=== PATIENT | female | born 1975 | race African-American/Black ===

== ENCOUNTER 2016-08-11 13:39 | Emergency (ER) | payer MEDICAID ==
[2016-08-11 13:58] VITALS: BP 152/86
--- NOTE | 2016-08-11 14:02 | EDM.PDOC ---
ED HPI GENERAL MEDICAL PROBLEM - General Chief Complaint: General Stated Complaint: BODY PAINS Time Seen by Provider: 08/11/16 14:02 Source of Information: Reports: Patient - History of Present Illness INITIAL COMMENTS - FREE TEXT/NARRATIVE: This 41-year-old female that is here today for evaluation for overall "pain everywhere". 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 She denies any other medical history. She reports the pain is mostly in her feet and sometimes it "all over" she denies any chest pain or dyspnea. No headaches or dizziness. She reports occasional left-sided lower abdominal pain but feels she doesn't really have this today. Denies any dysuria or hematuria. 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 Patient reports very poor diet and she does not exercise daily. She does drink soda "all day long". She does smoke marijuana daily denies any other drug use. She is not on any daily medications. Patient reports that she moved out here approximately one year ago from [place] with her 9 children to make a better life for them. She is not or in a relationship. Her sister does live here in [place] and she feels she has a good support network with her. Patient reports that [facility], she denies ever being on medication for this. She denies any previous or current thoughts of suicide. Treatments NATIONAL ACCOUNTS RECRUITER: Reports: Other (see below) Other Treatments NATIONAL ACCOUNTS RECRUITER: 2 tylenol today Generalized Pain Score (Numeric/FACES): 10 - Related Data Allergies Allergy/AdvReac Type Severity Reaction Status Date / Time No Known Allergies Allergy Verified 08/11/16 13:52 Home Meds: Home Meds Escitalopram Oxalate [Lexapro] 5 mg PO DAILY #30 tablet 08/11/16 [Rx] Past Medical History Musculoskeletal History: Reports: Arthritis, Other (See Below) Other Musculoskeletal History: torn ligaments to the left knee Psychiatric History: Reports: Depression Dermatologic History: Reports: Other (See Below) Other Dermatologic History: psorisis Social & Family History - Tobacco Use Smoking Status *Q: Current Every Day Smoker Years of Tobacco use: 20 Packs/Tins Daily: 0.5 - Caffeine Use Caffeine Use: Reports: Soda - Recreational Drug Use Recreational Drug Type: Reports: Marijuana/Hashish Recreational Drug Use Frequency: Daily ED ROS GENERAL - Review of Systems Review Of Systems: See Below Constitutional: Reports: Weakness, Fatigue, Decreased Appetite. Denies: Fever, Chills, Malaise, Weight Loss HEENT: Reports: No Symptoms Respiratory: Reports: No Symptoms Cardiovascular: Reports: No Symptoms Endocrine: Reports: Fatigue. Denies: Polydypsia, Polyuria GI/Abdominal: Reports: Abdominal Pain (LLQ), Black Stool, Decreased Appetite, Other (Hemorrhoids). Denies: Anorexia, Bloody Stool, Constipation, Diarrhea Musculoskeletal: Reports: Other (Diffuse arthralgias and myalgias. ) Skin: Reports: Rash (Patient has psoriasis) Neurological: Reports: No Symptoms Psychiatric: Reports: Anxiety, Depression. Denies: Hallucinations, Homicidal Ideation, Suicidal Ideation ED EXAM, GENERAL - Physical Exam Exam: See Below Exam Limited By: No Limitations General Appearance: Alert, WD/WN, Anxious, Mild Distress Eye Exam: Right Eye: Normal Inspection, PERRL Ears: Normal External Exam, Normal Canal, Hearing Grossly Normal, Normal TMs Nose: Normal Inspection Throat/Mouth: Normal Inspection, Normal Oropharynx Head: Atraumatic, Normocephalic Respiratory/Chest: No Respiratory Distress, Lungs Clear, Normal Breath Sounds Cardiovascular: Regular Rate, Rhythm, No Edema, No Murmur, No Rub GI/Abdominal: Normal Bowel Sounds, Soft, Tender (Mild LLQ tenderness). No: Guarding, Mass Extremities: Normal Inspection, Normal Range of Motion Neurological: Alert, Oriented, Normal Cognition, No Motor/Sensory Deficits Psychiatric: Anxious, Tearful (Patient tearful when discussing her emotional and financial stress. ) Skin Exam: Warm, Rash (Scaly rash to bilateral shins) Lymphatic: No Adenopathy Course - Vital Signs Last Recorded V/S: Last Vital Signs Temp 97.7 F 08/11/16 13:57 Pulse 70 08/11/16 13:57 Resp 20 08/11/16 13:57 BP 152/86 H 08/11/16 13:57 Pulse Ox 100 08/11/16 13:57 - Orders/Labs/Meds Orders: Active Orders 24 hr Category Date Time Status EKG 12 Lead [EKG Documentation Completion] [RC] STAT Care 08/11/16 14:25 Active Abdomen 2V AP Flat Upright [CR] Stat Exams 08/11/16 15:29 Taken CULTURE URINE [RM] Stat Lab 08/11/16 17:28 Ordered Labs: Laboratory Tests 08/11/16 08/11/16 08/11/16 Range/Units 14:42 14:42 14:42 WBC 4.38 (3.98-10.04) K/mm3 RBC 4.47 (3.98-5.22) M/mm3 Hgb 11.0 L (11.2-15.7) gm/L Hct 35.1 (34.1-44.9) % MCV 78.5 L (79.4-94.8) fl MCH 24.6 L (25.6-32.2) pg MCHC 31.3 L (32.2-35.5) g/dl RDW Std Deviation 49.1 H (36.4-46.3) fL Plt Count 121 L (182-369) K/mm3 MPV 11.4 (9.4-12.3) fl Neutrophils % (Manual) 43 (40-60) % Band Neutrophils % 0 (0-10) % Lymphocytes % (Manual) 47 H (20-40) % Atypical Lymphs % 0 % Monocytes % (Manual) 9 (2-10) % Eosinophils % (Manual) 0 L (0.7-5.8) % Basophils % (Manual) 1 (0.1-1.2) Platelet Estimate Decreased Plt Morphology Comment See note Hypochromasia 1+ slight Poikilocytosis 1+ slight Anisocytosis 1+ slight Microcytosis 1+ slight Ovalocytes 1+ slight RBC Morph Comment Not Reportable ESR 36 H (0-20) mm/hr Sodium 144 (136-145) mEq/L Potassium 3.4 L (3.5-5.1) mEq/L Chloride 110 H (98-107) mEq/L Carbon Dioxide 28 (21-32) mEq/L Anion Gap 9.4 (5-15) BUN 8 (7-18) mg/dL Creatinine 0.8 (0.55-1.02) mg/dL Est Cr Clr Drug Dosing 69.83 mL/min Estimated GFR (MDRD) > 60 (>60) mL/min BUN/Creatinine Ratio 10.0 L (14-18) Glucose 107 H (74-106) mg/dL Calcium 8.4 L (8.5-10.1) mg/dL Total Bilirubin 0.2 (0.2-1.0) mg/dL AST 16 (15-37) U/L ALT 14 (14-59) U/L Alkaline Phosphatase 111 (46-116) U/L C-Reactive Protein 0.8 (<1.0) mg/dL Total Protein 7.3 (6.4-8.2) g/dl Albumin 3.2 L (3.4-5.0) g/dl Globulin 4.1 gm/dL Albumin/Globulin Ratio 0.8 L (1-2) TSH 3rd Generation 0.496 (0.358-3.74) uIU/mL Urine Color (Yellow) Urine Appearance (Clear) Urine pH (5.0-8.0) Ur Specific [place] (1.005-1.030) Urine Protein (Negative) Urine Glucose (UA) (Negative) Urine Ketones (Negative) Urine Occult Blood (Negative) Urine Nitrite (Negative) Urine Bilirubin (Negative) Urine Urobilinogen (0.2-1.0) Ur Leukocyte Esterase (Negative) Urine RBC (0-5) /hpf Urine WBC (0-5) /hpf Ur Epithelial Cells Ur Squamous Epith Cells (0-5) /hpf Urine Bacteria (FEW) /hpf Urine Mucus (FEW) /hpf Urine HCG, Qual (NEGATIVE) 08/11/16 08/11/16 Range/Units 16:00 16:00 WBC (3.98-10.04) K/mm3 RBC (3.98-5.22) M/mm3 Hgb (11.2-15.7) gm/L Hct (34.1-44.9) % MCV (79.4-94.8) fl MCH (25.6-32.2) pg MCHC (32.2-35.5) g/dl RDW Std Deviation (36.4-46.3) fL Plt Count (182-369) K/mm3 MPV (9.4-12.3) fl Neutrophils % (Manual) (40-60) % Band Neutrophils % (0-10) % Lymphocytes % (Manual) (20-40) % Atypical Lymphs % % Monocytes % (Manual) (2-10) % Eosinophils % (Manual) (0.7-5.8) % Basophils % (Manual) (0.1-1.2) Platelet Estimate Plt Morphology Comment Hypochromasia Poikilocytosis Anisocytosis Microcytosis Ovalocytes RBC Morph Comment ESR (0-20) mm/hr Sodium (136-145) mEq/L Potassium (3.5-5.1) mEq/L Chloride (98-107) mEq/L Carbon Dioxide (21-32) mEq/L Anion Gap (5-15) BUN (7-18) mg/dL Creatinine (0.55-1.02) mg/dL Est Cr Clr Drug Dosing mL/min Estimated GFR (MDRD) (>60) mL/min BUN/Creatinine Ratio (14-18) Glucose (74-106) mg/dL Calcium (8.5-10.1) mg/dL Total Bilirubin (0.2-1.0) mg/dL AST (15-37) U/L ALT (14-59) U/L Alkaline Phosphatase (46-116) U/L C-Reactive Protein (<1.0) mg/dL Total Protein (6.4-8.2) g/dl Albumin (3.4-5.0) g/dl Globulin gm/dL Albumin/Globulin Ratio (1-2) TSH 3rd Generation (0.358-3.74) uIU/mL Urine Color Yellow (Yellow) Urine Appearance Slt cloudy H (Clear) Urine pH 7.0 (5.0-8.0) Ur Specific [place] 1.020 (1.005-1.030) Urine Protein 1+ H (Negative) Urine Glucose (UA) Negative (Negative) Urine Ketones Negative (Negative) Urine Occult Blood Negative (Negative) Urine Nitrite Positive H (Negative) Urine Bilirubin Negative (Negative) Urine Urobilinogen 1.0 (0.2-1.0) Ur Leukocyte Esterase Trace H (Negative) Urine RBC 0-5 (0-5) /hpf Urine WBC 5-10 H (0-5) /hpf Ur Epithelial Cells Not Reportable Ur Squamous Epith Cells 5-10 H (0-5) /hpf Urine Bacteria Many H (FEW) /hpf Urine Mucus Few (FEW) /hpf Urine HCG, Qual Negative (NEGATIVE) - Re-Assessments/Exams Free Text/Narrative Re-Assessment/Exam: Exam is unremarkable for cause for her diffuse generalized pain. EKG demonstrates normal sinus rhythm. With a rate of 62. WBC 4380, hemoglobin mildly decreased at 11. TSH 0.496. UA demonstrates some nitrites and trace leukocyte esterase, we'll send this for culture and if abnormal will treat with antibiotics at that time. X-ray of her abdomen was unremarkable, official report is pending. I do feel that patient's untreated depression is contributing to her overall feeling of unwellness. Patient desires treatment for this, will start 5 mg Lexapro daily risks and benefits and side effects were discussed at length and patient verbalized understanding. She will followup with her PCP within the next 1-2 weeks for reassessment of this. 08/11/16 17:31 08/11/16 17:33 Departure - Departure Time of Disposition: 17:26 Disposition: Home, Self-Care 01 Condition: good (chronic pain) Clinical Impression: Generalized pain, Depression - Discharge Information Prescriptions: Escitalopram Oxalate [Lexapro] 5 mg PO DAILY #30 tablet Referrals: Maddy Austin, 3D ARTIST [Primary Care Provider] - Forms: ED Department Discharge Additional Instructions: You need to focus on a healthy diet and increasing her oral fluids and decreasing soda intake. Will start the Lexapro daily for your depression and you need to followup with Yandy Austin within the next week or 2. You may certainly return to the ER if needed. Consider counseling as well. - My Orders Last 24 Hours: My Active Orders 08/11/16 14:25 EKG 12 Lead [EKG Documentation Completion] [RC] STAT 08/11/16 15:29 Abdomen 2V AP Flat Upright [CR] Stat 08/11/16 17:28 CULTURE URINE [RM] Stat - Assessment/Plan Last 24 Hours: My Active Orders 08/11/16 14:25 EKG 12 Lead [EKG Documentation Completion] [RC] STAT 08/11/16 15:29 Abdomen 2V AP Flat Upright [CR] Stat 08/11/16 17:28 CULTURE URINE [RM] Stat
--- NOTE | 2016-08-15 09:38 | CR ---
Abdomen: Supine and upright views of the abdomen were obtained. Comparison: No previous study. Bowel gas pattern is normal. No free air is seen. No abnormal calcifications are identified. Mild joint space narrowing is seen superiorly within the left hip. Impression: 1. Mild joint space narrowing within the left hip. 2. Two-view abdominal x-ray is otherwise unremarkable. Diagnostic code #2
== END 2016-08-11 17:43 | disposition home or self-care (01) ==
LOC: JD.ED 13:39 → EDBD 13:39 → JD.ED 17:43
DX: R10.84 Generalized abdominal pain (principal); R10.814 Left lower quadrant abdominal tenderness; F32.9 Major depressive disorder, single episode, unspecified; F17.210 Nicotine dependence, cigarettes, uncomplicated; L40.9 Psoriasis, unspecified; M19.90 Unspecified osteoarthritis, unspecified site; Z79.899 Other long term (current) drug therapy
CPT/HCPCS: 36415; 74020; 74020-26; 80053; 81001; 81025; 84443; 85025; 85652; 86140; 87086; 87088; 87186; 93005; 99283; 99284-25

== ENCOUNTER 2017-05-11 16:48 | Emergency (ER) | payer MEDICAID ==
[2017-05-11 16:56] VITALS: BP 185/96
[2017-05-11] MEDS ORDERED: Sodium Chloride 0.9% 10 ML Syringe FLUSH PRN (17:14)
[2017-05-11] MEDS ORDERED: Acetaminophen 325 MG Tab PO ONE (17:14)
[2017-05-11] MEDS ORDERED: Ketorolac 30 MG/ML SDV IVPUSH SCH (17:15)
--- NOTE | 2017-05-11 17:24 | EDM.PDOC ---
ED HPI GENERAL MEDICAL PROBLEM - General Chief Complaint: Chest Pain Stated Complaint: CHEST PAINS Time Seen by Provider: 05/11/17 16:59 Source of Information: Reports: Patient History Limitations: Reports: No Limitations - History of Present Illness INITIAL COMMENTS - FREE TEXT/NARRATIVE: 41 year old female comes in with R sided chest pain R lower anterior and R lower lateral chest wall that has been present for about 3 days, worse today. The pain is worse with motion, worse with deep breathing. No cough, fever, chills. No abd pain, nausea, vomiting. No fall or known injury. She does smoke. No hx diabetes, Htn or known heart disease. Treatments COMPENSATION ADMINISTRATOR: Reports: Other (see below) Other Treatments COMPENSATION ADMINISTRATOR: none Right Chest Pain Score (Numeric/FACES): 9 - Related Data Allergies Allergy/AdvReac Type Severity Reaction Status Date / Time No Known Allergies Allergy Verified 08/11/16 13:52 Home Meds: Home Meds Acetaminophen/HYDROcodone [Ames 325-5 MG] 1 tab PO Q6H PRN #14 tablet 05/11/17 [Rx] Naproxen [Naprosyn] 500 mg PO Q12HR #14 tab 05/11/17 [Rx] Past Medical History Musculoskeletal History: Reports: Arthritis, Other (See Below) Other Musculoskeletal History: torn ligaments to the left knee Psychiatric History: Reports: Depression Dermatologic History: Reports: Other (See Below) Other Dermatologic History: psorisis - Past Surgical History Female Surgical History: Reports: Section Other Female Surgeries/Procedures: 8 vaginal deliveries Musculoskeletal Surgical History: Reports: Other (See Below) Social & Family History - Tobacco Use Smoking Status *Q: Current Every Day Smoker Years of Tobacco use: 18 Packs/Tins Daily: 1 - Caffeine Use Caffeine Use: Reports: Soda - Recreational Drug Use Recreational Drug Type: Reports: Marijuana/Hashish Other Recreational Drug Type: daily Recreational Drug Use Frequency: Daily ED ROS GENERAL - Review of Systems Review Of Systems: See Below Constitutional: Denies: Fever, Chills, Diaphoresis HEENT: Denies: Sinus Problem, Throat Pain Respiratory: Reports: Pleuritic Chest Pain. Denies: Shortness of Breath, Cough Cardiovascular: Reports: Chest Pain GI/Abdominal: Denies: Abdominal Pain, Nausea, Vomiting Musculoskeletal: Denies: Neck Pain, Shoulder Pain, Arm Pain, Back Pain Skin: Reports: No Symptoms. Denies: Rash Neurological: Reports: No Symptoms ED EXAM, GENERAL - Physical Exam Exam: See Below General Appearance: Alert, Moderate Distress Eye Exam: Bilateral Eye: PERRL Throat/Mouth: Normal Inspection, Normal Oropharynx Head: Atraumatic. No: Facial Swelling Neck: Supple, Full Range of Motion Respiratory/Chest: No Respiratory Distress, Lungs Clear, Normal Breath Sounds, Other (tender R lower lateral and anterior R chest). No: Rhonchi, Wheezing Cardiovascular: Regular Rate, Rhythm GI/Abdominal: Soft, Non-Tender. No: Guarding Back Exam: No: CVA Tenderness (L), CVA Tenderness (R) Extremities: Normal Inspection. No: Pedal Edema, Leg Pain Neurological: Alert, Oriented, No Motor/Sensory Deficits Skin Exam: Warm, Dry, Normal Color. No: Rash EKG INTERPRETATION EKG Date: 05/11/17 Rhythm: NSR [place]: Normal P-Wave: Present QRS: Normal ST-T: Normal QT: Normal Course - Vital Signs Last Recorded V/S: Last Vital Signs Temp 98.7 F 05/11/17 16:52 Pulse 77 05/11/17 16:52 Resp 14 05/11/17 16:52 BP 185/96 H 05/11/17 16:52 Pulse Ox - Orders/Labs/Meds Orders: Active Orders 24 hr Category Date Time Status EKG 12 Lead [EKG Documentation Completion] [RC] STAT Care 05/11/17 17:14 Active Peripheral IV Care [RC] . DIRECTED Care 05/11/17 17:15 Active Chest 1V Frontal [CR] Stat Exams 05/11/17 17:14 Taken Ketorolac [Toradol] Med 05/11/17 17:15 Active 30 mg IVPUSH ONETIME Sodium Chloride 0.9% [Saline Flush] Med 05/11/17 17:14 Active 10 ml FLUSH ASDIRECTED PRN Peripheral IV Insertion Adult [OM.PC] Stat Oth 05/11/17 17:14 Ordered Medication Orders Ketorolac Tromethamine (Toradol) 30 mg IVPUSH ONETIME [facility] Last Admin: 05/11/17 17:26 Dose: 30 mg Sodium Chloride (Saline Flush) 10 ml FLUSH ASDIRECTED PRN PRN Reason: Keep Vein Open Last Admin: 05/11/17 17:27 Dose: 10 ml Labs: Laboratory Tests 05/11/17 05/11/17 05/11/17 Range/Units 17:40 17:55 17:55 WBC 7.16 (3.98-10.04) K/mm3 RBC 4.84 (3.98-5.22) M/mm3 Hgb 11.9 (11.2-15.7) gm/L Hct 37.6 (34.1-44.9) % MCV 77.7 L (79.4-94.8) fl MCH 24.6 L (25.6-32.2) pg MCHC 31.6 L (32.2-35.5) g/dl RDW Std Deviation 46.0 (36.4-46.3) fL Plt Count 127 L (182-369) K/mm3 MPV 12.4 H (9.4-12.3) fl Neut % (Auto) 64.3 (34.0-71.1) % Lymph % (Auto) 25.3 (19.3-51.7) % [place] % (Auto) 9.4 (4.7-12.5) % Eos % (Auto) 0.6 L (0.7-5.8) Baso % (Auto) 0.1 (0.1-1.2) % Neut # (Auto) 4.61 (1.56-6.13) K/mm3 Lymph # (Auto) 1.81 (1.18-3.74) K/mm3 [place] # (Auto) 0.67 H (0.24-0.36) K/mm3 Eos # (Auto) 0.04 (0.04-0.36) K/mm3 Baso # (Auto) 0.01 (0.01-0.08) K/mm3 Manual Slide Review Abnormal smear D-Dimer, Quantitative 0.43 (0.19-0.59) mg/L Sodium (136-145) mEq/L Potassium (3.5-5.1) mEq/L Chloride (98-107) mEq/L Carbon Dioxide (21-32) mEq/L Anion Gap (5-15) BUN (7-18) mg/dL Creatinine (0.55-1.02) mg/dL Est Cr Clr Drug Dosing mL/min Estimated GFR (MDRD) (>60) mL/min BUN/Creatinine Ratio (14-18) Glucose (74-106) mg/dL Calcium (8.5-10.1) mg/dL Total Bilirubin (0.2-1.0) mg/dL AST (15-37) U/L ALT (14-59) U/L Alkaline Phosphatase (46-116) U/L Troponin I (0.00-0.056) ng/mL Total Protein (6.4-8.2) g/dl Albumin (3.4-5.0) g/dl Globulin gm/dL Albumin/Globulin Ratio (1-2) Urine HCG, Qual Negative (NEGATIVE) 05/11/17 Range/Units 17:55 WBC (3.98-10.04) K/mm3 RBC (3.98-5.22) M/mm3 Hgb (11.2-15.7) gm/L Hct (34.1-44.9) % MCV (79.4-94.8) fl MCH (25.6-32.2) pg MCHC (32.2-35.5) g/dl RDW Std Deviation (36.4-46.3) fL Plt Count (182-369) K/mm3 MPV (9.4-12.3) fl Neut % (Auto) (34.0-71.1) % Lymph % (Auto) (19.3-51.7) % [place] % (Auto) (4.7-12.5) % Eos % (Auto) (0.7-5.8) Baso % (Auto) (0.1-1.2) % Neut # (Auto) (1.56-6.13) K/mm3 Lymph # (Auto) (1.18-3.74) K/mm3 [place] # (Auto) (0.24-0.36) K/mm3 Eos # (Auto) (0.04-0.36) K/mm3 Baso # (Auto) (0.01-0.08) K/mm3 Manual Slide Review D-Dimer, Quantitative (0.19-0.59) mg/L Sodium 138 (136-145) mEq/L Potassium 4.5 (3.5-5.1) mEq/L Chloride 103 (98-107) mEq/L Carbon Dioxide 25 (21-32) mEq/L Anion Gap 14.5 (5-15) BUN 9 (7-18) mg/dL Creatinine 0.7 (0.55-1.02) mg/dL Est Cr Clr Drug Dosing 79.81 mL/min Estimated GFR (MDRD) > 60 (>60) mL/min BUN/Creatinine Ratio 12.9 L (14-18) Glucose 87 (74-106) mg/dL Calcium 8.9 (8.5-10.1) mg/dL Total Bilirubin 0.3 (0.2-1.0) mg/dL AST 28 (15-37) U/L ALT 16 (14-59) U/L Alkaline Phosphatase 138 H (46-116) U/L Troponin I < 0.017 (0.00-0.056) ng/mL Total Protein 8.8 H (6.4-8.2) g/dl Albumin 3.7 (3.4-5.0) g/dl Globulin 5.1 gm/dL Albumin/Globulin Ratio 0.7 L (1-2) Urine HCG, Qual (NEGATIVE) Meds: Medications Generic Name Dose Route Start Last Admin Trade Name Freq PRN Reason Stop Dose Admin Ketorolac Tromethamine 30 mg 05/11/17 17:15 05/11/17 17:26 Toradol IVPUSH 30 mg ONETIME LISA Administration Sodium Chloride 10 ml 05/11/17 17:14 05/11/17 17:27 Saline Flush FLUSH 10 ml ASDIRECTED PRN Administration Keep Vein Open Discontinued Medications Generic Name Dose Route Start Last Admin Trade Name Freq PRN Reason Stop Dose Admin Acetaminophen 975 mg 05/11/17 17:14 05/11/17 17:25 Tylenol PO 05/11/17 17:15 975 mg NOW ONE Administration Hydrocodone Bitart/Acetaminophen 1 tab 05/11/17 19:11 05/11/17 19:21 [place] 325-5 Mg PO 05/11/17 19:12 1 tab ONETIME ONE Administration - Re-Assessments/Exams Free Text/Narrative Re-Assessment/Exam: 05/11/17 19:30 troponin, CXR, other labs normal, discharge instr. as documented. Departure - Departure Time of Disposition: 19:11 Disposition: Home, Self-Care 01 Condition: Fair Clinical Impression: Chest wall pain Prescriptions: Naproxen [Naprosyn] 500 mg PO Q12HR #14 tab Acetaminophen/HYDROcodone [Ames 325-5 MG] 1 tab PO Q6H PRN #14 tablet PRN Reason: Pain Instructions: Chest Wall Pain, [id number] Referrals: PCP,None [Primary Care Provider] - Forms: ED Department Discharge Additional Instructions: naprosyn 500 mg twice daily, you may take hydrocodone in addition 1 tablet q 6 to 8 hr if needed for severe pain not relieved by naprosyn. Follow up clinic if not much better within 3 to 4 days as expected. Return to ED as needed if symptoms worsening in any way. - My Orders Last 24 Hours: My Active Orders 05/11/17 17:14 EKG 12 Lead [EKG Documentation Completion] [RC] STAT Chest 1V Frontal [CR] Stat Sodium Chloride 0.9% [Saline Flush] 10 ml FLUSH ASDIRECTED PRN Peripheral IV Insertion Adult [OM.PC] Stat 05/11/17 17:15 Peripheral IV Care [RC] . DIRECTED Ketorolac [Toradol] 30 mg IVPUSH ONETIME - Assessment/Plan Last 24 Hours: My Active Orders 05/11/17 17:14 EKG 12 Lead [EKG Documentation Completion] [RC] STAT Chest 1V Frontal [CR] Stat Sodium Chloride 0.9% [Saline Flush] 10 ml FLUSH ASDIRECTED PRN Peripheral IV Insertion Adult [OM.PC] Stat 05/11/17 17:15 Peripheral IV Care [RC] . DIRECTED Ketorolac [Toradol] 30 mg IVPUSH ONETIME
[2017-05-11] MEDS ORDERED: Acetaminophen/HYDROcodone 325-5 MG Tab PO ONE (19:11)
--- NOTE | 2017-05-12 15:53 | CR ---
Chest: Portable view of the chest was obtained. Comparison: No prior chest x-ray is available. Heart is enlarged. Upper mediastinum is normal. Lungs are clear. Bony structures are grossly intact. Impression: 1. Cardiomegaly. Given the patient's age echocardiogram could be considered to further evaluate if the etiology is not known. 2. Nothing acute is otherwise seen on portable chest x-ray. Diagnostic code #3
== END 2017-05-11 19:32 | disposition home or self-care (01) ==
LOC: JD.ED 16:48
DX: R07.89 Other chest pain (principal); F17.210 Nicotine dependence, cigarettes, uncomplicated; F32.9 Major depressive disorder, single episode, unspecified
CPT/HCPCS: 36415; 71045; 80053; 81025; 84484; 85025; 85379; 93005; 96374; 99284; A9270; J1885; J7050; 93010

== ENCOUNTER 2018-11-02 05:49 | Emergency (ER) | payer SELFPAY ==
[2018-11-02 06:10] VITALS: BP 158/99
[2018-11-02] MEDS ORDERED: HYDROmorphone 0.5 MG/0.5 ML Syringe IVPUSH ONE (06:23)
[2018-11-02] MEDS ORDERED: LORazepam 2 MG/ML SDV IVPUSH STA (06:23)
[2018-11-02] MEDS ORDERED: Ondansetron 4 MG/2 ML SDV IVPUSH ONE (06:23)
--- NOTE | 2018-11-02 06:26 | EDM.PDOC ---
<Elieser Russ - Last Filed: 11/02/18 08:35> ED HPI GENERAL MEDICAL PROBLEM - General Chief Complaint: Abdominal Pain Stated Complaint: ABDOMINAL PAIN VOMMITING AND HEMROIDS Time Seen by Provider: 11/02/18 06:04 Source of Information: Reports: Patient History Limitations: Reports: Physical Impairment (Anxiety limiting patient's ability to explain her symptoms) - History of Present Illness INITIAL COMMENTS - FREE TEXT/NARRATIVE: The patient states that she has had abdominal pain for the past 3 weeks, that she believes is due to constipation, causing a flareup of her hemorrhoids. She states that she has been using Preparation H, a clear laxative, glycerin suppositories, and enemas, all without relief. She states that she has not had a bowel movement in almost 3 weeks, and states that she does not ordinarily suffer from constipation. She also reports nausea and emesis for the past 2 days. She has felt hot and cold, although has not checked her temperature. She is afebrile here in the ED. She believes her urine output is decreased, although she denies dysuria, urinary frequency, or urinary urgency. The patient has not sought medical evaluation for this problem prior to today. She states that she had an appointment to see Dr. Conde on 10/30/2018, however, she missed that appointment, and has not made a new appointment. The patient does not have a PCP. Abdomen Pain Score (Numeric/FACES): 10 - Related Data Allergies Allergy/AdvReac Type Severity Reaction Status Date / Time No Known Allergies Allergy Verified 11/02/18 06:10 Home Meds: Home Meds Hydrocodone/Acetaminophen [Hydrocodon-Acetaminophen 5-325] 1 - 2 each PO Q6HR PRN #20 tablet 11/02/18 [Rx] Omeprazole Magnesium [Prilosec Otc] 20 mg PO DAILY #15 tablet. 11/02/18 [Rx] Ondansetron [Zofran ODT] 4 mg PO Q6H PRN #20 tab.dis 11/02/18 [Rx] Past Medical History Musculoskeletal History: Reports: Arthritis Psychiatric History: Reports: Anxiety (untreated), Depression (untreated) Dermatologic History: Reports: Psoriasis - Past Surgical History Female Surgical History: Reports: Section (x 1) Musculoskeletal Surgical History: Reports: Arthroscopic Knee (left) Social & Family History - Tobacco Use Smoking Status *Q: Current Every Day Smoker Years of Tobacco use: 25 Packs/Tins Daily: 0.5 Packs/Tins Daily Comment: Down from 1.5 ppd - Caffeine Use Caffeine Use: Reports: None - Alcohol Use Alcohol Use History: Yes Alcohol Use Frequency: Socially - Recreational Drug Use Recreational Drug Use: Yes Drug Use in Last 12 Months: Yes Recreational Drug Type: Reports: Marijuana/Hashish (smokes regularly) - Living Situation & Occupation Living situation: Reports: Single, with Family (5 kids) 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 ED EXAM, GI/ABD - Physical Exam Exam: See Below Exam Limited By: Other (Tearful and anxious) General Appearance: Alert, WD/WN Eyes: Bilateral: Normal Appearance, EOMI Ears: Normal External Exam, Hearing Grossly Normal Nose: Normal Inspection Throat/Mouth: Normal Inspection, Normal Lips, Normal Voice, No Airway Compromise Head: Atraumatic, Normocephalic Neck: Normal Inspection, Full Range of Motion Respiratory/Chest: No Respiratory Distress, Lungs Clear, Normal Breath Sounds, No Accessory Muscle Use Cardiovascular: Normal Peripheral Pulses, Regular Rate, Rhythm, No Edema, No Gallop, No JVD, No Murmur, No Rub GI/Abdominal Exam: Normal Bowel Sounds, Soft, No Organomegaly, No Distention, No Abnormal Bruit, No Mass, Tender (Generalized, non-focal, although the patient acknowledges that her anxiety may be causing everything to hurt) (Female) Exam: Deferred Rectal (Female) Exam: Normal Rectal Tone, Hemorrhoids (external, non-thrombosed , nontender). No: Perirectal Abscess Back Exam: Normal Inspection, Full Range of Motion, NT Extremities: Normal Inspection, Normal Range of Motion, No Pedal Edema, Normal Capillary Refill Neurological: Alert, Oriented, Normal Cognition, No Motor/Sensory Deficits Psychiatric: Anxious Skin Exam: Warm, Dry, Intact, Normal Color, No Rash Course - Vital Signs Last Recorded V/S: Last Vital Signs Temp 98.5 F 11/02/18 06:08 Pulse 92 11/02/18 06:08 Resp 20 11/02/18 06:08 BP 158/99 H 11/02/18 06:08 Pulse Ox 98 11/02/18 06:08 - Orders/Labs/Meds Orders: Active Orders 24 hr Category Date Time Status Abdomen 1V Flat [CR] Stat Exams 11/02/18 06:23 Taken Sodium Chloride 0.9% [Normal Saline] 1,000 ml Med 11/02/18 06:30 Active IV ASDIRECTED Sodium Chloride 0.9% [Saline Flush] Med 11/02/18 08:58 Active 10 ml FLUSH ONETIME PRN Medication Orders Sodium Chloride (Normal Saline) 1,000 mls @ 150 mls/hr IV ASDIRECTED LISA Last Admin: 11/02/18 06:33 Dose: 150 mls/hr Sodium Chloride (Saline Flush) 10 ml FLUSH ONETIME PRN PRN Reason: KEEP VEIN OPEN Last Admin: 11/02/18 09:56 Dose: 10 ml Labs: Laboratory Tests 11/02/18 11/02/18 11/02/18 Range/Units 06:06 06:06 09:35 WBC 10.74 H (3.98-10.04) K/mm3 RBC 4.97 (3.98-5.22) M/mm3 Hgb 12.0 (11.2-15.7) gm/L Hct 38.1 (34.1-44.9) % MCV 76.7 L (79.4-94.8) fl MCH 24.1 L (25.6-32.2) pg MCHC 31.5 L (32.2-35.5) g/dl RDW Std Deviation 47.3 H (36.4-46.3) fL Plt Count 175 L (182-369) K/mm3 MPV 12.2 (9.4-12.3) fl Neutrophils % (Manual) 75 H (40-60) % Band Neutrophils % 0 (0-10) % Lymphocytes % (Manual) 20 (20-40) % Atypical Lymphs % 0 % Monocytes % (Manual) 2 (2-10) % Eosinophils % (Manual) 3 (0.7-5.8) % Basophils % (Manual) 0 L (0.1-1.2) Platelet Estimate Adequate Plt Morphology Comment Normal Hypochromasia Moderate Anisocytosis Moderate Microcytosis Few Macrocytosis Few RBC Morph Comment Not Reportable Sodium 141 (136-145) mEq/L Potassium 3.4 L (3.5-5.1) mEq/L Chloride 104 (98-107) mEq/L Carbon Dioxide 28 (21-32) mEq/L Anion Gap 12.4 (5-15) BUN 6 L (7-18) mg/dL Creatinine 0.6 (0.55-1.02) mg/dL Est Cr Clr Drug Dosing 91.23 mL/min Estimated GFR (MDRD) > 60 (>60) mL/min BUN/Creatinine Ratio 10.0 L (14-18) Glucose 100 (74-106) mg/dL Calcium 8.9 (8.5-10.1) mg/dL Total Bilirubin 0.2 (0.2-1.0) mg/dL AST 14 L (15-37) U/L ALT 11 L (14-59) U/L Alkaline Phosphatase 142 H (46-116) U/L Total Protein 8.7 H (6.4-8.2) g/dl Albumin 3.4 (3.4-5.0) g/dl Globulin 5.3 gm/dL Albumin/Globulin Ratio 0.6 L (1-2) Lipase 163 (73-393) U/L Urine Color Yellow (Yellow) Urine Appearance Clear (Clear) Urine pH 7.0 (5.0-8.0) Ur Specific [place] 1.020 (1.005-1.030) Urine Protein Negative (Negative) Urine Glucose (UA) Negative (Negative) Urine Ketones Negative (Negative) Urine Occult Blood Negative (Negative) Urine Nitrite Negative (Negative) Urine Bilirubin Negative (Negative) Urine Urobilinogen 0.2 (0.2-1.0) Ur Leukocyte Esterase Trace H (Negative) Urine RBC 0-5 (0-5) /hpf Urine WBC 10-20 H (0-5) /hpf Ur Epithelial Cells 5-10 H (0-5) /hpf Urine Bacteria Few (FEW) /hpf Urine Mucus Many H (FEW) /hpf Urine HCG, Qual (NEGATIVE) 11/02/18 Range/Units 09:35 WBC (3.98-10.04) K/mm3 RBC (3.98-5.22) M/mm3 Hgb (11.2-15.7) gm/L Hct (34.1-44.9) % MCV (79.4-94.8) fl MCH (25.6-32.2) pg MCHC (32.2-35.5) g/dl RDW Std Deviation (36.4-46.3) fL Plt Count (182-369) K/mm3 MPV (9.4-12.3) fl Neutrophils % (Manual) (40-60) % Band Neutrophils % (0-10) % Lymphocytes % (Manual) (20-40) % Atypical Lymphs % % Monocytes % (Manual) (2-10) % Eosinophils % (Manual) (0.7-5.8) % Basophils % (Manual) (0.1-1.2) Platelet Estimate Plt Morphology Comment Hypochromasia Anisocytosis Microcytosis Macrocytosis RBC Morph Comment Sodium (136-145) mEq/L Potassium (3.5-5.1) mEq/L Chloride (98-107) mEq/L Carbon Dioxide (21-32) mEq/L Anion Gap (5-15) BUN (7-18) mg/dL Creatinine (0.55-1.02) mg/dL Est Cr Clr Drug Dosing mL/min Estimated GFR (MDRD) (>60) mL/min BUN/Creatinine Ratio (14-18) Glucose (74-106) mg/dL Calcium (8.5-10.1) mg/dL Total Bilirubin (0.2-1.0) mg/dL AST (15-37) U/L ALT (14-59) U/L Alkaline Phosphatase (46-116) U/L Total Protein (6.4-8.2) g/dl Albumin (3.4-5.0) g/dl Globulin gm/dL Albumin/Globulin Ratio (1-2) Lipase (73-393) U/L Urine Color (Yellow) Urine Appearance (Clear) Urine pH (5.0-8.0) Ur Specific [place] (1.005-1.030) Urine Protein (Negative) Urine Glucose (UA) (Negative) Urine Ketones (Negative) Urine Occult Blood (Negative) Urine Nitrite (Negative) Urine Bilirubin (Negative) Urine Urobilinogen (0.2-1.0) Ur Leukocyte Esterase (Negative) Urine RBC (0-5) /hpf Urine WBC (0-5) /hpf Ur Epithelial Cells (0-5) /hpf Urine Bacteria (FEW) /hpf Urine Mucus (FEW) /hpf Urine HCG, Qual Negative (NEGATIVE) Meds: Medications Generic Name Dose Route Start Last Admin Trade Name Freq PRN Reason Stop Dose Admin Sodium Chloride 1,000 mls @ 150 mls/hr 11/02/18 06:30 11/02/18 06:33 Normal Saline IV 150 mls/hr ASDIRECTED LISA Administration Sodium Chloride 10 ml 11/02/18 08:58 11/02/18 09:56 Saline Flush FLUSH 10 ml ONETIME PRN Administration KEEP VEIN OPEN Discontinued Medications Generic Name Dose Route Start Last Admin Trade Name Freq PRN Reason Stop Dose Admin Diatrizoate Meglum/Diatrizoate Sod 90 ml 11/02/18 08:58 11/02/18 09:57 Gastrografin 37% PO 11/02/18 08:59 90 ml ONETIME ONE Administration Famotidine 20 mg 11/02/18 10:48 11/02/18 10:53 Pepcid IVPUSH 11/02/18 10:49 20 mg ONETIME ONE Administration Hydromorphone HCl 0.5 mg 11/02/18 06:23 11/02/18 06:34 Dilaudid IVPUSH 11/02/18 06:24 0.5 mg ONETIME ONE Administration Iopamidol 100 ml 11/02/18 08:58 11/02/18 09:56 Isovue-300 (61%) IVPUSH 11/02/18 08:59 100 ml ONETIME ONE Administration Lorazepam 1 mg 11/02/18 06:23 11/02/18 06:34 Ativan IVPUSH 11/02/18 06:24 1 mg ONETIME STA Administration Ondansetron HCl 4 mg 11/02/18 06:23 11/02/18 06:35 Zofran IVPUSH 11/02/18 06:24 4 mg ONETIME ONE Administration - Re-Assessments/Exams Free Text/Narrative Re-Assessment/Exam: 11/02/18 06:26 According to the patient, she has not had a bowel movement in almost 3 weeks, and this has affected her hemorrhoids. I have ordered a KUB to evaluate the amount of constipation, but in the meantime, since the patient is so anxious and tearful, I have ordered Ativan, Dilaudid, Zofran, and IV fluid. 11/02/18 08:04 The KUB appears to demonstrate a nonspecific bowel gas pattern with minimal stool seen in the colon. Formal read per the Radiologist pending. 11/02/18 08:13 Following Ativan and Dilaudid, the patient is now calm and comfortable - she was sleeping soundly when I returned to her room. On rectal examination, the patient has non-thrombosed and nontender external hemorrhoids, and while the rectal examination was uncomfortable, I did not feel any palpable mass that was particularly tender, suggestive of a perirectal abscess, and the patient acknowledged that the examination was not inordinately painful. We discussed options. The cause of her abdominal pain, along with nausea and vomiting, is unclear. She indicated that her pain is entirely on the left side - she had not mentioned that earlier - raising the possibility that she might be suffering from diverticulitis. I therefore recommended a CT scan of the abdomen and pelvis with oral and IV contrast, to which the patient agreed. In addition, I have ordered blood work. 11/02/18 08:[address] Anton, and care of the patient turned over to him at this time, for change of shift. 11/02/18 08:39 I added a U/A. Departure - Departure Disposition: Home, Self-Care 01 Clinical Impression: Pelvic mass Gastritis Qualifiers: Gastritis type: unspecified gastritis Chronicity: acute Gastritis bleeding: without bleeding Qualified Code(s): K29.00 - Acute gastritis without bleeding - Discharge Information Prescriptions: Hydrocodone/Acetaminophen [Hydrocodon-Acetaminophen 5-325] 1 - 2 each PO Q6HR PRN #20 tablet PRN Reason: Pain Omeprazole Magnesium [Prilosec Otc] 20 mg PO DAILY #15 tablet. Ondansetron [Zofran ODT] 4 mg PO Q6H PRN #20 tab.dis PRN Reason: Nausea\vomiting Referrals: PCP,None [Primary Care Provider] - Estela Conde MD [Physician] - 1 Week Roberth Lynn MD [Physician] - 1 Week Forms: ED Department Discharge Additional Instructions: Drink plenty of fluid. Take prilosec daily for 2 weeks. Take the zofran every 6 hours as needed for nausea and vomiting. Take the hydrocodone as needed for pain. Follow up with Dr Conde and Dr Lynn within a week. Please return if you are worse. <Kuylen,Krishna - Last Filed: 11/02/18 14:09> Course - Re-Assessments/Exams Free Text/Narrative Re-Assessment/Exam: 11/02/18 10:[address] Russ. Her WBC was slightly elevated at 10.74. Her K was low at 3.4. Her Alk phos was elevated at 142. 11/02/18 10:51 Her UA was contaminated. Her CT shows bowel wall thickening within the greater curvature of the body of the stomach. This may represent gastritis although endoscopy is suggested to make sure this does not represent other abnormality. Fluid-filled structure within the left side of the pelvis, uncertain how much of this would represent complicated left adnexal or ovarian cyst versus unopacified bowel. Pelvic US would be helpful to differentiate. No additional abnormality is appreciated on CT study of the abdomen and pelvis. I have ordered an US or her pelvis and pepcid 20mg IV. 11/02/18 13:59 The US shows a complicated cystic and solid abnormality within the left ovary which obscures ovarian margins. This measures up to 6.2cm in size. If patient has acute pelvic pain, difficult to exclude torsion. Differential also includes ovarian mass either benign or malignant. MARKETING OPERATIONS MANAGER referral recommended. 11/02/18 14:02 I will put the patient on prilosec, and some zofran and give her something for pain and have her follow up with Dr Conde and Dr Lynn. Departure - Departure Time of Disposition: 14:05 Condition: Good - Discharge Information *PRESCRIPTION DRUG MONITORING PROGRAM REVIEWED*: No *COPY OF PRESCRIPTION DRUG MONITORING REPORT IN PATIENT GLADIS: No
[2018-11-02] MEDS ORDERED: Sodium Chloride 0.9% 1,000 ML IV SCH (06:30)
[2018-11-02] MEDS ORDERED: Diatrizoate Meglumine/Diatrizoate Sodium 37% 120 ML Bottle PO ONE (08:58)
[2018-11-02] MEDS ORDERED: Sodium Chloride 0.9% 10 ML Syringe FLUSH PRN (08:58)
[2018-11-02] MEDS ORDERED: Iopamidol 612 MG/ML 100 ML Bottle IVPUSH ONE (08:58)
--- NOTE | 2018-11-02 10:26 | CT ---
CT abdomen and pelvis Technique: Multiple axial sections were obtained from above the dome of the diaphragm inferiorly through the pubic symphysis. Intravenous and oral contrast was utilized. Delayed images were also obtained through the bladder. Comparison: No prior CT abdomen or pelvis exam, previous abdominal x-ray performed earlier on the same day (6:57 AM). Findings: Very slight dependent atelectasis is noted within both lung bases. Liver contains no focal abnormality. Spleen appears within normal limits. Very small low density finding is noted within the upper spleen measuring 3 mm which is felt to be incidental. Kidneys show symmetric contrast enhancement without hydronephrosis or mass. Pancreas appears within normal limits. Aorta shows atherosclerotic calcification which continues into the iliac vessels. No retroperitoneal adenopathy or mesenteric abnormalities are seen. Complicated fluid filled structure is noted within the left adnexa. Uncertain how much of this could represent complicated adnexal or ovarian cyst versus unopacified bowel. Delayed images shows contrast within the distal ureters and within the bladder. Gallbladder contains no calcified gallstones. Appendix is felt to be visualized and is normal in size. Wall thickening is identified within the stomach along the greater curvature of the body of the stomach. Bone window settings were reviewed which appear within normal limits for the patient's age. Impression: 1. Bowel wall thickening within the greater curvature of the body of the stomach. This may represent gastritis although endoscopy is suggested to make sure this does not represent other abnormality. 2. Fluid-filled structure within the left side of the pelvis, uncertain how much of this could represent complicated left adnexal or ovarian cyst versus unopacified bowel. Pelvic ultrasound would be helpful to differentiate. 3. No additional abnormality is appreciated on CT study of the abdomen and pelvis. Diagnostic code #9
[2018-11-02] MEDS ORDERED: Famotidine 20 MG/2 ML SDV IVPUSH ONE (10:48)
--- NOTE | 2018-11-02 13:41 | US ---
Pelvic ultrasound: Multiple real-time images were obtained both transabdominally and transvaginally. Comparison: Prior CT abdomen and pelvis exam performed earlier on same day (9:51 AM) Findings: 2.1 cm cyst is noted within the right ovary believed to represent dominant follicle. Right ovary is otherwise unremarkable. Left ovary is very abnormal with a mixture of cysts and solid abnormalities. This obscures delineation of the left ovarian margins. This mass measures up to 6.2 cm. Uterus is anteverted and shows no discrete myometrial abnormality. Endometrial thickness is normal at 6.1 cm. No free fluid is appreciated. Measurements: Right ovary: 4.6 x 2.2 x 2.5 cm Uterus: Length 3.9 cm, AP height 4.5 cm, transverse width 5.1 cm Impression: 1. Complicated cystic and solid abnormality within the left ovary which obscures ovarian margins. This measures up to 6.2 cm in size. If patient has acute pelvic pain, difficult to exclude torsion. Differential also includes ovarian mass either benign or malignant. SHEARING SHED WORKER referral recommended. 2. Other normal findings as noted above. Diagnostic code #9
--- NOTE | 2018-11-03 11:46 | CR ---
Abdomen: Supine view of the abdomen was obtained. Comparison: Prior abdominal x-ray of 08/11/16. Bowel gas pattern appears within normal limits. Slight joint space narrowing seen within the left hip which is stable. No abnormal calcifications or soft tissue abnormality is identified. Impression: 1. Finding as noted above. 2. Nothing acute is seen on supine abdominal x-ray. Diagnostic code #2
== END 2018-11-02 15:37 | disposition home or self-care (01) ==
LOC: JD.ED 05:49
DX: K29.00 Acute gastritis without bleeding (principal); R19.00 Intra-abdominal and pelvic swelling, mass and lump, unspecified site; F17.210 Nicotine dependence, cigarettes, uncomplicated; F41.9 Anxiety disorder, unspecified; Z79.899 Other long term (current) drug therapy
CPT/HCPCS: 36415; 74018; 74177; 76830; 80053; 81001; 81025; 83690; 85007; 85027; 96361; 96374; 96375; 99284; J1170; J2060; J2405; J3490; J7040; Q9963; Q9967

== ENCOUNTER 2019-05-28 02:47 | Emergency (ER) | payer MEDICAID ==
[2019-05-28 03:03] VITALS: PULSE 65
--- NOTE | 2019-05-28 03:15 | EDM.PDOC ---
ED HPI GENERAL MEDICAL PROBLEM - General Chief Complaint: Headache Stated Complaint: tooth head and throat pain Time Seen by Provider: 05/28/19 03:05 - History of Present Illness INITIAL COMMENTS - FREE TEXT/NARRATIVE: 43-year-old female presents the emergency room with facial and dental pain. This started around 7:00 yesterday morning now about 20 hours ago. This is progressively gotten worse she has had problems with this wisdom tooth in the past. This is the lower left wisdom tooth. She has been coming from this area radiating into her jaw and into her ear. She denies fevers or chills. The patient has been off her blood pressure medicine for 3 days as she has not had a chance to get it filled. But she has refills. Face/Facial Pain Score (Numeric/FACES): 10 - Related Data Allergies Allergy/AdvReac Type Severity Reaction Status Date / Time No Known Allergies Allergy Verified 01/25/19 08:34 Home Meds: Home Meds lisinopriL [Lisinopril] 20 mg PO DAILY #30 tablet 01/25/19 [Rx] Acetaminophen/HYDROcodone [[place] 325-5 MG] 1 tab PO Q6H PRN #15 tablet 05/28/19 [Rx] Amoxicillin 500 mg PO Q8H #30 capsule 05/28/19 [Rx] Naproxen 1 tab PO BID PRN 05/28/19 [History] Potassium Chloride [Klor-Con M20] 1 tab PO DAILY 05/28/19 [History] Past Medical History - Past Health History Medical/Surgical History: Denies Medical/Surgical History Musculoskeletal History: Reports: RA Other Musculoskeletal History: torn ligaments to the left knee Psychiatric History: Reports: Anxiety, Depression Dermatologic History: Reports: Psoriasis Other Dermatologic History: psorisis - Past Surgical History Female Surgical History: Reports: Section Musculoskeletal Surgical History: Reports: Arthroscopic Knee Social & Family History - Caffeine Use Caffeine Use: Reports: Energy Drinks - Living Situation & Occupation Living situation: Reports: Single, with Family (5 kids) 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 However, when I asked her to explain clearly she could do this.) General Appearance: Severe Distress (From the pain) Ears: Normal External Exam, Normal Canal, Hearing Grossly Normal, Normal TMs Nose: Normal Inspection, Normal Mucousa, No Blood Mouth/Throat: Dental Tenderness (Left lower rear wisdom tooth is tender with pressure applied via tongue depressor that mimics the pain she is having. She is got surrounding erythema and swelling in this area to the oral mucosa and gum tissue) Head: Other (Mild swelling near the lower portion of the mandible on the left side and inferior portion of the mandible on the left side) Neck: Lymphadenopathy (L) (Below the mandible) Respiratory/Chest: No Respiratory Distress, Lungs Clear, Normal Breath Sounds Cardiovascular: Regular Rate, Rhythm, No Edema, No Murmur Course - Vital Signs Last Recorded V/S: Last Vital Signs Temp 37.1 C 05/28/19 02:57 Pulse 65 05/28/19 02:57 Resp 20 05/28/19 02:57 BP 181/99 H 05/28/19 02:57 Pulse Ox 98 05/28/19 02:57 - Orders/Labs/Meds Meds: Medications Discontinued Medications Generic Name Dose Route Start Last Admin Trade Name Freq PRN Reason Stop Dose Admin Hydrocodone Bitart/Acetaminophen 1 tab 05/28/19 03:18 05/28/19 03:23 [place] 325-5 Mg PO 05/28/19 03:19 1 tab ONETIME ONE Administration Hydrocodone Bitart/Acetaminophen 1 tab 05/28/19 03:32 [place] 325-5 Mg PO 05/28/19 03:33 ONETIME ONE Amoxicillin 1,000 mg 05/28/19 03:17 05/28/19 03:23 Amoxil PO 05/28/19 03:18 1,000 mg ONETIME ONE Administration Lisinopril 20 mg 05/28/19 03:32 Prinivil PO 05/28/19 03:33 ONETIME ONE Departure - Departure Time of Disposition: 03:29 Disposition: Home, Self-Care 01 Clinical Impression: Pain, dental - Discharge Information Prescriptions: Acetaminophen/HYDROcodone [[place] 325-5 MG] 1 tab PO Q6H PRN #15 tablet PRN Reason: Pain Amoxicillin 500 mg PO Q8H #30 capsule Referrals: Ivan Mackay PA-C [Primary Care Provider] - Forms: ED Department Discharge Additional Instructions: Return to the emergency room with any questions problems or worsening symptoms. You must follow-up with a dentist as soon as you can to get this tooth dealt with. Follow-up with your regular provider as needed. Take the medications as directed. You were sent home with an additional pain pill to use if needed before you make it to the pharmacy. With this pain pill on the once he get from the pharmacy allow 12 hours after taking this medication before driving or returning to work. Sepsis Event Note - Evaluation Sepsis Screening Result: No Definite Risk - Focused Exam Vital Signs: Vital Signs Temp Pulse Resp BP Pulse Ox 05/28/19 02:57 37.1 C 65 20 181/99 H 98 Date Exam was Performed: 05/28/19 Time Exam was Performed: 03:47
[2019-05-28] MEDS ORDERED: Amoxicillin 500 MG Cap PO ONE (03:17)
[2019-05-28] MEDS ORDERED: Acetaminophen/HYDROcodone 325-5 MG Tab PO ONE ×2 (03:18→03:32)
[2019-05-28] MEDS ORDERED: Lisinopril 20 MG Tab PO ONE (03:32)
[2019-05-28 03:55] VITALS: BP 164/103
== END 2019-05-28 04:11 | disposition home or self-care (01) ==
LOC: JD.ED 02:47
DX: K08.89 Other specified disorders of teeth and supporting structures (principal); F41.9 Anxiety disorder, unspecified; F32.9 Major depressive disorder, single episode, unspecified; Z79.899 Other long term (current) drug therapy
CPT/HCPCS: 99284; A9270; 99283

== ENCOUNTER 2019-12-20 01:33 | Emergency (ER) | payer MEDICAID ==
[2019-12-20 01:50] VITALS: PULSE 87
[2019-12-20] MEDS ORDERED: Oxymetazoline 0.05% Nasal Spray 30 ML Bottle NAS ONE (02:02)
--- NOTE | 2019-12-20 02:28 | EDM.PDOC ---
ED HPI GENERAL MEDICAL PROBLEM - General Chief Complaint: Respiratory Problem Stated Complaint: BLOOD WHEN SHE COUGHS Time Seen by Provider: 12/20/19 01:53 - History of Present Illness INITIAL COMMENTS - FREE TEXT/NARRATIVE: 44-year-old female presents the emergency room spitting up blood. For about the last half hour the patient's had blood coming out of her mouth. She is not on any blood thinners does not have a family history or personal history of any bleeding problems. Patient denies any breathing difficulties or shortness of breath. Patient is currently treated for hypertension however she is not been taking her blood pressure medicine for the last 3 or 4 days. She does not know why she is not taking her medication she does not feel like it. 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: Musculoskeletal History: Reports: RA Other Musculoskeletal History: torn ligaments to the left knee Psychiatric History: Reports: Anxiety, Depression Dermatologic History: Reports: Psoriasis Other Dermatologic History: psorisis - Past Surgical History Female Surgical History: Reports: Section Musculoskeletal Surgical History: Reports: Arthroscopic Knee Social & Family History - Family History Family Medical History: Noncontributory - Caffeine Use Caffeine Use: Reports: Energy Drinks - Living Situation & Occupation Living situation: Reports: Single, with Family (5 kids) 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 She denies any nosebleeds however). Denies: No Symptoms Respiratory: Reports: No Symptoms Cardiovascular: Reports: No Symptoms Endocrine: Reports: No Symptoms GI/Abdominal: Reports: No Symptoms Musculoskeletal: Reports: No Symptoms Neurological: Reports: No Symptoms ED EXAM, GENERAL - Physical Exam Exam: See Below Exam Limited By: No Limitations General Appearance: Alert, No Apparent Distress Eye Exam: Bilateral Eye: Normal Inspection Ears: Normal External Exam, Normal Canal, Hearing Grossly Normal, Normal TMs Nose: Normal Inspection, Normal Mucosa, No Blood Throat/Mouth: Other (Patient has blood draining down the back of her throat) Neck: Normal Inspection, Supple, Non-Tender, Full Range of Motion. No: Lymphadenopathy (L), Lymphadenopathy (R) Respiratory/Chest: No Respiratory Distress, Lungs Clear, Normal Breath Sounds Cardiovascular: Regular Rate, Rhythm, No Edema, No Murmur Course - Vital Signs Last Recorded V/S: Last Vital Signs Temp 36.4 C 12/20/19 01:43 Pulse 87 12/20/19 01:43 Resp 16 12/20/19 01:43 BP 188/105 H 12/20/19 04:17 Pulse Ox 100 12/20/19 01:43 - Orders/Labs/Meds Orders: Active Orders 24 hr Category Date Time Status Chest 2V [CR] Stat Exams 12/20/19 01:53 Stop Req CULTURE URINE [RM] Stat Lab 12/20/19 01:45 Received INR,PT,PROTHROMBIN TIME [COAG] Stat Lab 12/20/19 02:03 Ordered PTT,PARTIAL THROMBOPLSTIN TIME [COAG] Stat Lab 12/20/19 02:03 Ordered Labs: Laboratory Tests 12/20/19 12/20/19 12/20/19 Range/Units 01:45 01:45 01:45 WBC (3.98-10.04) K/mm3 RBC (3.98-5.22) M/mm3 Hgb (11.2-15.7) gm/dl Hct (34.1-44.9) % MCV (79.4-94.8) fl MCH (25.6-32.2) pg MCHC (32.2-35.5) g/dl RDW Std Deviation (36.4-46.3) fL Plt Count (182-369) K/mm3 MPV (9.4-12.3) fl Neut % (Auto) (34.0-71.1) % Lymph % (Auto) (19.3-51.7) % [place] % (Auto) (4.7-12.5) % Eos % (Auto) (0.7-5.8) Baso % (Auto) (0.1-1.2) % Neut # (Auto) (1.56-6.13) K/mm3 Lymph # (Auto) (1.18-3.74) K/mm3 [place] # (Auto) (0.24-0.36) K/mm3 Eos # (Auto) (0.04-0.36) K/mm3 Baso # (Auto) (0.01-0.08) K/mm3 Urine Color Yellow (Yellow) Urine Appearance Clear (Clear) Urine pH 7.0 (5.0-8.0) Ur Specific [place] 1.020 (1.005-1.030) Urine Protein Negative (Negative) Urine Glucose (UA) Negative (Negative) Urine Ketones Negative (Negative) Urine Occult Blood Negative (Negative) Urine Nitrite Negative (Negative) Urine Bilirubin Negative (Negative) Urine Urobilinogen 0.2 (0.2-1.0) Ur Leukocyte Esterase 1+ H (Negative) Urine RBC Not seen (0-5) /hpf Urine WBC 5-10 H (0-5) /hpf Ur Squamous Epith Cells 10-20 H (0-5) /hpf Urine Bacteria Rare (FEW) /hpf Urine Mucus Not seen (FEW) /hpf Urine HCG, Qual Negative (NEGATIVE) Urine Opiates Screen Negative (XHTFCM=751) Ur Buprenorphine Scrn Negative (CUTOFF=10) Ur Oxycodone Screen Negative (KBT6KH=895) Urine Methadone Screen Negative (FQWDLD=251) Ur Propoxyphene Screen Negative (TCOIED=548) Ur Barbiturates Screen Negative (SQGTIT=344) Ur Tricyclics Screen Negative (LGZTBJ=693) Ur Phencyclidine Scrn Negative (CUTOFF=25) Ur Amphetamine Screen Negative (ZDDFWG=482) U Methamphetamines Scrn Negative (IEGHFI=572) U Benzodiazepines Scrn Negative (LBTYTY=179) U Cocaine Metab Screen Negative (RDDRET=878) U Marijuana (THC) Screen Presumptive positive H (CUTOFF=50) 12/20/19 Range/Units 02:45 WBC 4.79 (3.98-10.04) K/mm3 RBC 4.83 (3.98-5.22) M/mm3 Hgb 12.0 (11.2-15.7) gm/dl Hct 38.2 (34.1-44.9) % MCV 79.1 L D (79.4-94.8) fl MCH 24.8 L (25.6-32.2) pg MCHC 31.4 L (32.2-35.5) g/dl RDW Std Deviation 48.6 H (36.4-46.3) fL Plt Count 161 L (182-369) K/mm3 MPV 11.4 (9.4-12.3) fl Neut % (Auto) 56.0 (34.0-71.1) % Lymph % (Auto) 32.2 (19.3-51.7) % [place] % (Auto) 10.4 (4.7-12.5) % Eos % (Auto) 1.0 (0.7-5.8) Baso % (Auto) 0.2 (0.1-1.2) % Neut # (Auto) 2.68 (1.56-6.13) K/mm3 Lymph # (Auto) 1.54 (1.18-3.74) K/mm3 [place] # (Auto) 0.50 H (0.24-0.36) K/mm3 Eos # (Auto) 0.05 (0.04-0.36) K/mm3 Baso # (Auto) 0.01 (0.01-0.08) K/mm3 Urine Color (Yellow) Urine Appearance (Clear) Urine pH (5.0-8.0) Ur Specific [place] (1.005-1.030) Urine Protein (Negative) Urine Glucose (UA) (Negative) Urine Ketones (Negative) Urine Occult Blood (Negative) Urine Nitrite (Negative) Urine Bilirubin (Negative) Urine Urobilinogen (0.2-1.0) Ur Leukocyte Esterase (Negative) Urine RBC (0-5) /hpf Urine WBC (0-5) /hpf Ur Squamous Epith Cells (0-5) /hpf Urine Bacteria (FEW) /hpf Urine Mucus (FEW) /hpf Urine HCG, Qual (NEGATIVE) Urine Opiates Screen (PWBMNE=035) Ur Buprenorphine Scrn (CUTOFF=10) Ur Oxycodone Screen (APW6QF=633) Urine Methadone Screen (VPXJLJ=473) Ur Propoxyphene Screen (WXUFOA=898) Ur Barbiturates Screen (TKBMHF=120) Ur Tricyclics Screen (EQMXOR=827) Ur Phencyclidine Scrn (CUTOFF=25) Ur Amphetamine Screen (OXPNFF=064) U Methamphetamines Scrn (RGEAOJ=515) U Benzodiazepines Scrn (EJQAVK=612) U Cocaine Metab Screen (TONGVQ=054) U Marijuana (THC) Screen (CUTOFF=50) Meds: Medications Discontinued Medications Generic Name Dose Route Start Last Admin Trade Name [place] PRN Reason Stop Dose Admin Clonidine HCl 0.1 mg 12/20/19 03:25 12/20/19 04:27 Catapres PO 12/20/19 03:26 Not Given ONETIME ONE Clonidine HCl 0.1 mg 12/20/19 04:06 12/20/19 04:17 Catapres PO 12/20/19 04:07 0.1 mg ONETIME ONE Administration Oxymetazoline HCl 0.001 ml 12/20/19 02:02 12/20/19 02:12 Nasal Decongestant [place] ANGELIA 12/20/19 02:03 1 spray ONETIME ONE Administration - Re-Assessments/Exams Free Text/Narrative Re-Assessment/Exam: 12/20/19 03:31 Patient blew her nose really good and then received a few squirts of Afrin in each side with deep breathing in. Her bleeding stopped. We watched the patient for a while and her blood pressure kept going up I did discuss this with the patient and this is when she revealed that she had not been taking her blood pressure medicine for the last several days. With systolics at around 190 in the recent nosebleeds I will give her clonidine 0.1 mg right now and then as soon as she gets home she is taking her lisinopril 40 mg and continue to take this as directed without missing doses as this is the probable cause of her epistaxis. Departure - Departure Time of Disposition: 04:36 Disposition: Home, Self-Care 01 Clinical Impression: Epistaxis, Poorly-controlled hypertension - Discharge Information Prescriptions: lisinopriL [Lisinopril] 40 mg PO Q24H #15 tablet Referrals: PCP,None [Primary Care Provider] - Forms: ED Department Discharge Additional Instructions: Return to the emergency room with any questions problems or worsening symptoms. As soon as you get home take 1 your blood pressure pills and then take them daily as directed. Follow-up in the hospital clinic in 1 week for recheck your blood pressure. [id number] Sepsis Event Note (ED) - Evaluation Sepsis Screening Result: No Definite Risk - Focused Exam Vital Signs: Vital Signs Temp Pulse Resp BP BP Pulse Ox 12/20/19 04:17 188/105 H 12/20/19 01:43 36.4 C 87 16 140/110 H 100 - My Orders Last 24 Hours: My Active Orders 12/20/19 01:45 CULTURE URINE [RM] Stat 12/20/19 01:53 Chest 2V [CR] Stat 12/20/19 02:03 INR,PT,PROTHROMBIN TIME [COAG] Stat PTT,PARTIAL THROMBOPLSTIN TIME [COAG] Stat - Assessment/Plan Last 24 Hours: My Active Orders 12/20/19 01:45 CULTURE URINE [RM] Stat 12/20/19 01:53 Chest 2V [CR] Stat 12/20/19 02:03 INR,PT,PROTHROMBIN TIME [COAG] Stat PTT,PARTIAL THROMBOPLSTIN TIME [COAG] Stat
[2019-12-20] MEDS ORDERED: cloNIDine 0.1 MG Tab PO ONE ×2 (03:25→04:06)
[2019-12-20 04:18] VITALS: BP 188/105
== END 2019-12-20 04:47 | disposition home or self-care (01) ==
LOC: JD.ED 01:33
DX: R04.0 Epistaxis (principal); I10 Essential (primary) hypertension; Z79.899 Other long term (current) drug therapy
CPT/HCPCS: 36415; 80306; 81001; 81025; 85025; 87086; 87088; 87186; 99283; A9270

== ENCOUNTER 2020-04-23 11:38 | Emergency (ER) | payer MEDICAID ==
--- NOTE | 2020-04-23 11:50 | EDM.PDOC ---
ED HPI GENERAL MEDICAL PROBLEM - General Chief Complaint: Neuro Symptoms/Deficits Stated Complaint: [facility] Time Seen by Provider: 04/23/20 11:40 Source of Information: Reports: Patient History Limitations: Reports: No Limitations - History of Present Illness INITIAL COMMENTS - FREE TEXT/NARRATIVE: 44-year-old female of -[place] Citizen descent presents to the ED with a dense hemiparesis involving her right upper extremity associate with expressive aphasia and moderate weakness of her right lower extremity. Last known well time was approximately 0900 hrs. this morning. She started with falling and not able to walk. Every time she tried to get up and walk she fell down again. She had to crawl history suggest that she has had a previous CVA 10 years ago af fecting the right side but cleared up with no residual deficit. She apparently has 9 children at home. She had to crawl to a neighbor's home to get help and therefore this was the delay in getting medical attention. She arrived in the ED at approximately 1140 hrs. month standard time. She has a history of significant hypertension and apparently takes Lopressor and amlodipine for this. She denies any headache at this time. She states that they never did find out a reason for her previous CVA. Onset: Today, Sudden Onset Date: 04/23/20 Onset Time: 06:00 Duration: Hour(s):, Constant Location: Reports: Face, Upper Extremity, Right (Sleep paresis right ), Lower Extremity, Right (upper extremity. Grade 3 motor power and tone in the right lower extremity she can hold it above gravity for a short period of time.) Quality: Reports: Other (Nicolette involving right upper extremity right lower extremity with expressive aphasia.) Severity: Severe Improves with: Reports: None Worsens with: Reports: None Context: Reports: Other (Wilma's occurrence of symptoms at approximately 0900 hrs. this morning.). Denies: Activity, Exercise, Sick Contact, Trauma Associated Symptoms: Denies: Confusion, Chest Pain, Cough, Diaphoresis, Fever/Chills, Headaches, Loss of Appetite, Malaise, Nausea/Vomiting, Rash, Seizure, Shortness of Breath, Syncope, Weakness Treatments TRANSFER DRIVER: Reports: Other (see below) (None.) - Related Data Allergies Allergy/AdvReac Type Severity Reaction Status Date / Time No Known Allergies Allergy Verified 04/23/20 12:02 Home Meds: Home Meds lisinopriL [Lisinopril] 40 mg PO DAILY 12/20/19 [History] amLODIPine [Norvasc] 5 mg PO DAILY 04/23/20 [History] Past Medical History - Past Health History Medical/Surgical History: Denies Medical/Surgical History Cardiovascular History: Reports: Hypertension 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: Musculoskeletal History: Reports: RA Other Musculoskeletal History: torn ligaments to the left knee Psychiatric History: Reports: Anxiety, Depression Dermatologic History: Reports: Psoriasis Other Dermatologic History: psorisis - Past Surgical History Female Surgical History: Reports: Section Musculoskeletal Surgical History: Reports: Arthroscopic Knee Social & Family History - Family History Family Medical History: No Pertinent Family History - Caffeine Use Caffeine Use: Reports: Energy Drinks - Living Situation & Occupation Living situation: Reports: Single, with Family (5 kids) 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 Denies: Fever, Chills, Malaise, Fatigue, Decreased Appetite, Weight Loss (Right arm and leg. Difficulty speaking.) HEENT: Reports: No Symptoms Respiratory: Reports: No Symptoms Cardiovascular: Reports: Blood Pressure Problem Endocrine: Reports: Fatigue GI/Abdominal: Reports: No Symptoms : Reports: No Symptoms Musculoskeletal: Reports: No Symptoms Skin: Reports: Other (Neck psoriasis particular involving the lower extremities.) Neurological: Reports: Other (Reports previous CVA 10 years ago with right-sided weakness from which she recovered from completely. Apparently she had no residual deficit.) Psychiatric: Reports: No Symptoms Hematologic/Lymphatic: Reports: No Symptoms Immunologic: Reports: No Symptoms ED EXAM, NEURO - Physical Exam Exam: See Below Exam Limited By: Physical Impairment (Dysarthric speech due to) General Appearance: Alert ( expressive aphasia.), WD/WN, Anxious, Moderate Distress, Other (Initial BP is 163/96. Temperature is 36.4 degrees heart rate 101 and sinus on the monitor respiratory of 22 with O2 sats of 98% room air.) Eye Exam: Bilateral Eye: Normal Inspection, PERRL Throat/Mouth: Normal Inspection, Normal Lips, Normal Teeth, Normal Oropharynx Head Exam: Atraumatic, Normocephalic Neck: Normal Inspection, Supple, Non-Tender, Full Range of Motion. No: Lymphadenopathy (L), Lymphadenopathy (R) Respiratory/Chest: No Respiratory Distress, Lungs Clear, Normal Breath Sounds, No Accessory Muscle Use Cardiovascular: Normal Peripheral Pulses, Regular Rate, Rhythm, No Edema, No Gallop, No Murmur, No Rub GI/Abdominal: Normal Bowel Sounds, Soft, Non-Tender, No Organomegaly, No Mass, Pelvis Stable Neurological: Alert, Oriented x 3, Other (She denies a complete paresis of her right upper extremity with no ability to lift it off the gurney. She can lift her right leg off the gurney and hold against gravity for about 3 seconds. She has dorsiflexion of the ankle and great toe. Left lower extremity is u naffected.). No: Normal Mood/Affect, Normal Dorsiflexion, CN II-XII Intact DTR: 0: Achilles (R), Achilles (L), 1+: Bicep (R), Patella (L), 2+: Bicep (L), Achilles (R) Back Exam: Normal Inspection, Full Range of Motion. No: CVA Tenderness (L), CVA Tenderness (R) Extremities: Normal Inspection, Normal Range of Motion, Non-Tender, No Pedal Edema Psychiatric: Normal Affect, Normal Mood Skin Exam: Warm, Dry, Intact, Normal Color, Other (Attic rash both lower extremities.) #1 Interpretation EKG Date: 04/23/20 Time: 12:12 Rhythm: NSR Rate (Beats/Min): 74 [place]: Normal P-Wave: Enlarged (Marked left atrial hypertrophy) QRS: Other (Early R wave transition V2 suggesting right ventricular perjury pattern versus septal hypertrophy pattern. There is evidence of left ventricular hypertrophy as well.) ST-T: Other (Diffuse early repolarization pattern no evidence of ischemia) EKG Interpretation Comments: Abnormal ECG Course - Vital Signs Last Recorded V/S: Last Vital Signs Temp 36.4 C 04/23/20 11:40 Pulse 101 H 04/23/20 11:40 Resp 22 H 04/23/20 11:40 BP 163/96 H 04/23/20 11:40 Pulse Ox 98 04/23/20 11:40 - Orders/Labs/Meds Orders: Active Orders 24 hr Category Date Time Status EKG Documentation Completion [RC] STAT Care 04/23/20 11:47 Active CORONAVIRUS COVID-19 WES [MOLEC] Stat Lab 04/23/20 13:54 Received CULTURE URINE [RM] Stat Lab 04/23/20 13:06 Received DRUG SCREEN, URINE [URCHEM] Stat Lab 04/23/20 13:06 Received Sodium Chloride 0.9% [Normal Saline] 1,000 ml Med 04/23/20 12:00 Active IV ASDIRECTED Sodium Chloride 0.9% [Normal Saline] 100 ml Med 04/23/20 12:30 Active IV ASDIRECTED Medication Orders Sodium Chloride (Normal Saline) 1,000 mls @ 100 mls/hr IV ASDIRECTED LISA Last Admin: 04/23/20 12:32 Dose: 100 mls/hr Documented by: TITO Sodium Chloride (Normal Saline) 100 mls @ 60 mls/hr IV ASDIRECTED LISA Last Admin: 04/23/20 12:55 Dose: 60 mls/hr Documented by: ELVER Labs: Laboratory Tests 04/23/20 04/23/20 04/23/20 Range/Units 12:10 12:10 12:10 WBC 6.35 (3.98-10.04) K/mm3 RBC 5.07 (3.98-5.22) M/mm3 Hgb 12.2 (11.2-15.7) gm/dl Hct 40.1 (34.1-44.9) % MCV 79.1 L (79.4-94.8) fl MCH 24.1 L (25.6-32.2) pg MCHC 30.4 L (32.2-35.5) g/dl RDW Std Deviation 49.3 H (36.4-46.3) fL Plt Count 149 L (182-369) K/mm3 MPV 11.6 (9.4-12.3) fl Neut % (Auto) 51.5 (34.0-71.1) % Lymph % (Auto) 36.4 (19.3-51.7) % [place] % (Auto) 10.7 (4.7-12.5) % Eos % (Auto) 0.9 (0.7-5.8) Baso % (Auto) 0.3 (0.1-1.2) % Neut # (Auto) 3.27 (1.56-6.13) K/mm3 Lymph # (Auto) 2.31 (1.18-3.74) K/mm3 [place] # (Auto) 0.68 H (0.24-0.36) K/mm3 Eos # (Auto) 0.06 (0.04-0.36) K/mm3 Baso # (Auto) 0.02 (0.01-0.08) K/mm3 ESR 31 H (0-20) mm/hr PT 10.0 (9.7-12.0) SECONDS INR 0.93 APTT 27.7 (21.7-31.4) SECONDS Sodium (136-145) mEq/L Potassium (3.5-5.1) mEq/L Chloride (98-107) mEq/L Carbon Dioxide (21-32) mEq/L Anion Gap (5-15) BUN (7-18) mg/dL Creatinine (0.55-1.02) mg/dL Est Cr Clr Drug Dosing mL/min Estimated GFR (MDRD) (>60) mL/min BUN/Creatinine Ratio (14-18) Glucose (74-106) mg/dL Calcium (8.5-10.1) mg/dL Magnesium (1.8-2.4) mg/dl Total Bilirubin (0.2-1.0) mg/dL AST (15-37) U/L ALT (14-59) U/L Alkaline Phosphatase (46-116) U/L CK-MB (CK-2) (0-3.6) ng/ml Troponin I (0.00-0.056) ng/mL C-Reactive Protein (<1.0) mg/dL NT-Pro-B Natriuret Pep (0-125) pg/mL Total Protein (6.4-8.2) g/dl Albumin (3.4-5.0) g/dl Globulin gm/dL Albumin/Globulin Ratio (1-2) Urine Color (Yellow) Urine Appearance (Clear) Urine pH (5.0-8.0) Ur Specific [place] (1.005-1.030) Urine Protein (Negative) Urine Glucose (UA) (Negative) Urine Ketones (Negative) Urine Occult Blood (Negative) Urine Nitrite (Negative) Urine Bilirubin (Negative) Urine Urobilinogen (0.2-1.0) Ur Leukocyte Esterase (Negative) Urine RBC (0-5) /hpf Urine WBC (0-5) /hpf Ur Squamous Epith Cells (0-5) /hpf Urine Bacteria (FEW) /hpf Urine Mucus (FEW) /hpf 04/23/20 04/23/20 04/23/20 Range/Units 12:10 12:10 13:06 WBC (3.98-10.04) K/mm3 RBC (3.98-5.22) M/mm3 Hgb (11.2-15.7) gm/dl Hct (34.1-44.9) % MCV (79.4-94.8) fl MCH (25.6-32.2) pg MCHC (32.2-35.5) g/dl RDW Std Deviation (36.4-46.3) fL Plt Count (182-369) K/mm3 MPV (9.4-12.3) fl Neut % (Auto) (34.0-71.1) % Lymph % (Auto) (19.3-51.7) % [place] % (Auto) (4.7-12.5) % Eos % (Auto) (0.7-5.8) Baso % (Auto) (0.1-1.2) % Neut # (Auto) (1.56-6.13) K/mm3 Lymph # (Auto) (1.18-3.74) K/mm3 [place] # (Auto) (0.24-0.36) K/mm3 Eos # (Auto) (0.04-0.36) K/mm3 Baso # (Auto) (0.01-0.08) K/mm3 ESR (0-20) mm/hr PT (9.7-12.0) SECONDS INR APTT (21.7-31.4) SECONDS Sodium 141 (136-145) mEq/L Potassium 3.5 (3.5-5.1) mEq/L Chloride 105 (98-107) mEq/L Carbon Dioxide 22 (21-32) mEq/L Anion Gap 17.5 H (5-15) BUN 8 (7-18) mg/dL Creatinine 0.6 (0.55-1.02) mg/dL Est Cr Clr Drug Dosing 90.29 mL/min Estimated GFR (MDRD) > 60 (>60) mL/min BUN/Creatinine Ratio 13.3 L (14-18) Glucose 96 (74-106) mg/dL Calcium 8.8 (8.5-10.1) mg/dL Magnesium 2.0 (1.8-2.4) mg/dl Total Bilirubin 0.3 (0.2-1.0) mg/dL AST 18 (15-37) U/L ALT 22 (14-59) U/L Alkaline Phosphatase 148 H (46-116) U/L CK-MB (CK-2) 0.5 (0-3.6) ng/ml Troponin I < 0.017 (0.00-0.056) ng/mL C-Reactive Protein 1.7 H* (<1.0) mg/dL NT-Pro-B Natriuret Pep 379 H (0-125) pg/mL Total Protein 8.7 H (6.4-8.2) g/dl Albumin 3.7 (3.4-5.0) g/dl Globulin 5.0 gm/dL Albumin/Globulin Ratio 0.7 L (1-2) Urine Color Light yellow (Yellow) Urine Appearance Clear (Clear) Urine pH 7.0 (5.0-8.0) Ur Specific [place] 1.020 (1.005-1.030) Urine Protein Negative (Negative) Urine Glucose (UA) Negative (Negative) Urine Ketones Negative (Negative) Urine Occult Blood Trace-intact H (Negative) Urine Nitrite Negative (Negative) Urine Bilirubin Negative (Negative) Urine Urobilinogen 0.2 (0.2-1.0) Ur Leukocyte Esterase 1+ H (Negative) Urine RBC 5-10 H (0-5) /hpf Urine WBC 10-20 H (0-5) /hpf Ur Squamous Epith Cells 0-5 (0-5) /hpf Urine Bacteria Many H (FEW) /hpf Urine Mucus Few (FEW) /hpf Meds: Medications Generic Name Dose Route Start Last Admin Trade Name Freq PRN Reason Stop Dose Admin Sodium Chloride 1,000 mls @ 100 mls/hr 04/23/20 12:00 04/23/20 12:32 Normal Saline IV 100 mls/hr ASDIRECTED LISA Administration Sodium Chloride 100 mls @ 60 mls/hr 04/23/20 12:30 04/23/20 12:55 Normal Saline IV 60 mls/hr ASDIRECTED LISA Administration Discontinued Medications Generic Name Dose Route Start Last Admin Trade Name Elier PRTaco Reason Stop Dose Admin Alteplase, Recombinant Confirm 04/23/20 12:57 04/23/20 13:15 Activase Administered 04/23/20 12:58 Not Given Dose 100 mg .ROUTE .STK-MED ONE Alteplase, Recombinant 8.15 mg 04/23/20 12:58 04/23/20 13:08 Activase 0.09 mg/kg (8.15 mg) 04/23/20 12:59 8.15 mg IV Administration BOLUS STA Alteplase, Recombinant 73.5 mg 0 mls @ 0 mls/hr 04/23/20 12:59 / Alteplase, Recombinant IV 04/23/20 13:00 ASDIRECTED STA Nicardipine HCl 25 mg/ Sodium 260 mls @ 26 mls/hr 04/23/20 13:15 Chloride IV TITRATE LISA 2.5 MG/HR Iopamidol 100 ml 04/23/20 12:20 04/23/20 12:55 Isovue-370 (76%) IVPUSH 04/23/20 12:21 100 ml ONETIME ONE Administration Lorazepam 1 mg 04/23/20 12:11 04/23/20 12:32 Ativan IV 04/23/20 12:12 1 mg ONETIME ONE Administration Sodium Chloride 10 ml 04/23/20 12:20 04/23/20 12:55 Saline Flush FLUSH 04/23/20 12:21 10 ml ONETIME ONE Administration - Radiology Interpretation Free Text/Narrative:: 44-year-old female of -[place] Citizen descent presents to the ED. And suffered a stroke. She has complete paresis of her right upper extremity and moderate paresis of the right lower extremity with expressive aphasia and dysarthric speech. History suggest she has had a stroke 10 years ago from which she recovered from completely with no residual deficit. Plan she will be going immediately to CT to rule out intracranial hemorrhage. Last known well time is 0900 hrs. this morning which was 2 hours and 40 minutes before arrival in the ED. - Re-Assessments/Exams Free Text/Narrative Re-Assessment/Exam: 04/23/20 11:56 CT scan of the brain completed and on my assessment there is no intracranial bleeding mass-effect or evidence of previous brain injury. She has thus a candidate for thrombolytic therapy. 04/23/20 12:00: When I went back to discuss options with the patient about thrombolytics she had return of spontaneous function of her right upper extremity and able to hold it against gravity and actually had near normal [id number] exam. Right leg weakness also improved and her speech was now discernible and normal. I will therefore proceed with CT angiogram of head and neck to see if we can identify a lesion or clot that can be treated. 04/23/20 12:25 T scan overread is now available from radiology. No prior intracranial imaging is available for comparison purposes. Benches ventricles along with the basal cisterns and sulci over the convexities are within normal limits for the patient's age diminished density is noted within portions of the basal ganglia on the left side measuring up to 2.2 cm. No other abnormal parenchymal densities are seen. No evidence of intracranial hemorrhage no midline shift or mass-effect appreciated. Bone window settings were reviewed. Mastoid and paranasal sinuses showed nothing acute. No acute calvarial abnormalities appreciated. 04/23/20 12:34 x-ray done portably reveals borderline cardiomegaly. Perhaps very mild diffuse vascular congestion pattern but no formal pulmonary infiltrate no pneumothorax or pleural effusion. Due to the patient being extremely apprehensive plan will be to give her 1 mg of Ativan IV to facilitate CT angiograms of her head neck as she has delayed still and was barely able to lay still for the CT of her head. Nurses report to me now once again she has lost function of her right upper extremity unable to lift it at all. 04/23/20 12:44 . Hematology reveals a normal white count at 6.35. The auto differential shows 51.5% neutrophils. Hemoglobin is 12.2 with hematocrit of 40.1. MCV is slightly low at 79.1. Platelet count low normal 149,000. PT is 10.0 with an INR of 0.93 and PTT of 27.7. 04/23/20 12:49 patient has returned from the CT suite and she continues to have a dense hemiparesis with no ability to move her right upper extremity and dysarthric speech once again. She can lift her leg up at the hip but she could not lift it off the gurney at this time. She is still a candidate for thrombolytics. I will discuss case with stroke specialist at [facility] in [place]. 04/23/20 14:05: At the time of discharge patient was regaining some movement in her right upper extremity but cannot lift it against gravity. She also had better movement of her right leg and speech was a little more discernible as well. She will be transferred to [facility] intensive care unit under the care of Dr. Armenta after receiving thrombolytics for CVA. No apparent deficit in CT angiogram head or neck and therefore looking for an embolic source elsewhere. 04/23/20 14:15 Sodium is 141 with a potassium of 3.5. Chloride is 105 with a bicarb of 22. Anion gap slightly elevated at 17.5. BUN is 8 with a creatinine of 0.6 and a GFR greater than 60. Glucose 96 with a calcium of 8.8. Magnesium 2.0 make liver function normal. Alk phosphatase minimally elevated at 148. CK- MB fraction is 0.5. Troponin I is less than 0.017. C-reactive protein 1.7. BNP is slightly elevated at 379. Total protein 8.7 with albumin fraction of 3.7. Urinalysis has been collected and reveals trace of intact red cells on the dip. 1+ leukocyte esterase with 5-10 RBCs and 10-20 WBCs per high-power field with many bacteria appreciated. Urine culture will be ordered. Note the patient was discharged from the ED per ground ambulance headed for [facility] in [place] before any antibiotics could be started for suspect low- grade UTI. Departure - Departure Time of Disposition: 14:12 Disposition: DC/Tfer to Acute Hospital 02 Condition: Serious Clinical Impression: Cerebrovascular accident (CVA), Right hemiparesis, Essential hypertension - Discharge Information *PRESCRIPTION DRUG MONITORING PROGRAM REVIEWED*: No *COPY OF PRESCRIPTION DRUG MONITORING REPORT IN PATIENT GLADIS: No Referrals: PCP,None [Primary Care Provider] - Forms: ED Department Discharge Additional Instructions: Is suffered an acute cerebrovascular accident of unclear etiology. She has a dense right hemiparesis upon admission to the ED at 1140 hrs. [place] standard time. Apparently she was last known to be well around 0900 hrs. when she starte d to fall in her own home. She crawled eventually to the neighbor's home to seek help and an ambulance was summoned. Upon arrival she had complete paresis of her right upper extremity dysarthric speech with some expressive aphasia symptoms. She had a could lift her right leg off the gurney by flexing at the hip but could not lift her heel off the gurney. Stroke alert was called she was seen immediately sent to the CT suite where a CT scan of her brain was carried out. It reveals slight abnormality in the left basal ganglia which appeared to be old. Upon return from the CT suite she had regained function of her right arm and leg and speech was easily discernible. This lasted only about 15 minutes and she developed complete right-sided hemiparesis again. Therefore thrombolytics were instituted. A CT angiogram of the head neck were carried out which did not reveal any obvious sources for occlusion of vessels in the head or neck that would benefit from interventional neuro surgery. Plan will be to send her to intensive care unit at [facility] in [place] due to thrombolytic therapy and need for further investigations as to the etiology of suspect embolic stroke. Sepsis Event Note (ED) - Focused Exam Vital Signs: Vital Signs Temp Pulse Resp BP Pulse Ox 04/23/20 11:40 36.4 C 101 H 22 H 163/96 H 98 - My Orders Last 24 Hours: My Active Orders 04/23/20 11:47 EKG Documentation Completion [RC] STAT 04/23/20 12:00 Sodium Chloride 0.9% [Normal Saline] 1,000 ml IV ASDIRECTED 04/23/20 12:30 Sodium Chloride 0.9% [Normal Saline] 100 ml IV ASDIRECTED 04/23/20 13:06 CULTURE URINE [RM] Stat DRUG SCREEN, URINE [URCHEM] Stat 04/23/20 13:54 CORONAVIRUS COVID-19 WES [MOLEC] Stat - Assessment/Plan Last 24 Hours: My Active Orders 04/23/20 11:47 EKG Documentation Completion [RC] STAT 04/23/20 12:00 Sodium Chloride 0.9% [Normal Saline] 1,000 ml IV ASDIRECTED 04/23/20 12:30 Sodium Chloride 0.9% [Normal Saline] 100 ml IV ASDIRECTED 04/23/20 13:06 CULTURE URINE [RM] Stat DRUG SCREEN, URINE [URCHEM] Stat 04/23/20 13:54 CORONAVIRUS COVID-19 WES [MOLEC] Stat
[2020-04-23] MEDS ORDERED: Sodium Chloride 0.9% 1,000 ML IV SCH (12:00)
--- NOTE | 2020-04-23 12:10 | CT ---
Head CT Technique: Multiple axial sections through the brain were obtained. Intravenous contrast was not utilized. Reconstructed coronal and sagittal images were obtained. Comparison: No prior intracranial imaging is available. Findings: Ventricles along with basal cisterns and sulci over the convexities are within normal limits for the patient's age. Diminished density is noted within portions of the basal ganglia on the left side measuring up to 2.2 cm. No other abnormal parenchymal densities are seen. No evidence of intracranial hemorrhage. No midline shift or mass-effect is appreciated. Bone window settings were reviewed. Visualized mastoid sinuses and paranasal sinuses show nothing acute. No acute calvarial abnormality is appreciated. Impression: 1. Vague area of low density within the left basal ganglia. Uncertain as to etiology at this point. Consider brain MRI (without and with intravenous contrast) to further evaluate. 2. No additional abnormality is appreciated on noncontrast head CT study. Diagnostic code #5
[2020-04-23] MEDS ORDERED: LORazepam 2 MG/ML SDV IV ONE (12:11)
[2020-04-23] MEDS ORDERED: Iopamidol 755 Mg/ML 100 ML Bottle IVPUSH ONE (12:20)
[2020-04-23] MEDS ORDERED: Sodium Chloride 0.9% 10 ML Syringe FLUSH ONE (12:20)
[2020-04-23] MEDS ORDERED: Sodium Chloride 0.9% 100 ML IV SCH (12:30)
--- NOTE | 2020-04-23 12:42 | CR ---
Chest: Portable view of the chest was obtained. Comparison: Prior chest x-ray of 01/25/19. Heart size is slightly prominent. Tortuous thoracic aorta is seen. Lungs are clear with no acute parenchymal change. No acute osseous finding is seen. Impression: 1. Heart size slightly enlarged which is stable from prior chest x-ray. 2. Nothing acute is otherwise seen on portable chest x-ray. Diagnostic code #2
[2020-04-23] MEDS ORDERED: INFUSION IV STA (12:59)
[2020-04-23] MEDS ORDERED: ALTEPLASE IV STA (12:59)
[2020-04-23] MEDS ORDERED: niCARdipine HCl 25 MG in Sodium Chloride 0.9% 250 ML IV SCH (13:15)
--- NOTE | 2020-04-23 13:15 | CT ---
CT angiogram of brain Technique: Multiple axial sections through the brain were obtained. Reconstructed MIP images were obtained. Findings: Distal vertebral arteries, basilar arteries and posterior cerebral arteries are patent. Internal carotid arteries and middle cerebral arteries are patent. Note is made that there is a single anterior cerebral artery which is larger in size than usually seen. There is slightly abnormal vasculature within the frontal lobes which is most likely chronic. No focal stenosis or occlusion is otherwise appreciated. Impression: 1. Single anterior communicating artery which is larger than usual. There is some abnormal vasculature within the frontal lobes which is most likely chronic. 2. Other portions of the CT angiogram study of the brain appear unremarkable. Diagnostic code #3
--- NOTE | 2020-04-23 13:17 | CT ---
CT angiogram of neck Technique: Intravenous contrast was given. Multiple MIP images were obtained. Findings: Proximal right common carotid artery is not well seen which is most likely technical. Other portions of the common carotid arteries are patent. Atherosclerotic change is seen within the carotid bulb and proximal internal carotid arteries on both sides, worse on the right side. There is no evidence of significant stenosis being seen. Vertebral arteries are patent into the basilar artery. Impression: 1. Mild atherosclerotic change within the carotid bulb and proximal internal carotid arteries on both sides which is worse within the right side. 2. No focal stenosis is otherwise seen within the common carotids, internal carotids or vertebral arteries. Diagnostic code #3
[2020-04-23 15:54] VITALS: BP 165/66; PULSE 68
== END 2020-04-23 14:12 ==
LOC: JD.ED 11:38
DX: I69.351 Hemiplegia and hemiparesis following cerebral infarction affecting right dominant side (principal); I10 Essential (primary) hypertension; Z79.899 Other long term (current) drug therapy; Z20.822 Contact with and (suspected) exposure to COVID-19
CPT/HCPCS: 36415; 37195; 70450; 70496; 70498; 71045; 80053; 80306; 81001; 82553; 83735; 83880; 84484; 85025; 85610; 85652; 85730; 86140; 87086; 87088; 87186; 87635; 93005; 96374; 99285; J2060; J2997; J7030; Q9967; 93010; U0002

== ENCOUNTER 2020-05-01 04:09 | Emergency (ER) | payer MEDICAID ==
[2020-05-01 04:17] VITALS: BP 158/89; PULSE 86
[2020-05-01] MEDS ORDERED: methylPREDNISolone Sodium Succinate 125 MG/2 ML SDV IVPUSH ONE (04:32)
[2020-05-01] MEDS ORDERED: Famotidine 20 MG/2 ML SDV IVPUSH ONE (04:32)
[2020-05-01] MEDS ORDERED: diphenhydrAMINE 50 MG/ML SDV IVPUSH ONE (04:32)
--- NOTE | 2020-05-01 04:40 | EDM.PDOC ---
ED HPI GENERAL MEDICAL PROBLEM - General Chief Complaint: ENT Problem Stated Complaint: ISSUES SWALLOWING/SOB Time Seen by Provider: 05/01/20 04:23 Source of Information: Reports: Patient History Limitations: Reports: No Limitations - History of Present Illness INITIAL COMMENTS - FREE TEXT/NARRATIVE: This is a 44-year-old female. She had a stroke on the causing some right- sided paralysis. She was sent to [facility] and they felt it was related to her blood pressure and she had a small bleed according to the patient. They also started her on some rosuvastatin and sent her home. She has an appointment to see a neurologist this coming week. Things seem to have been going very well for her. But this evening after she took her medications she fell asleep and then about an hour prior to coming to the ER she awoke and felt like there was something in the back of her throat. It felt like it was some fullness or something but she cannot describe it. She felt like may be something she ate or her pills might of gotten caught back there even though before she went to bed she did not feel anything. So she vomited up her meal and what ever else was in her stomach but it did not seem to make any difference with that feeling. She states she is able to breathe okay but she feels like she cannot swallow her spit. Though she is not drooling. She comes to the ER for evaluation. She does state that it feels like her tongue is bigger than it should be but her lips are normal. The patient denies any recent muscle aches or pains. The abdominal pain. She has denied any insomnia or blood in her urine. And she has had no headaches. 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: Musculoskeletal History: Reports: RA Other Musculoskeletal History: torn ligaments to the left knee Neurological History: Reports: CVA Psychiatric History: Reports: Anxiety, Depression Dermatologic History: Reports: Psoriasis Other Dermatologic History: psorisis - Past Surgical History Female Surgical History: Reports: Section Other Female Surgeries/Procedures: 8 vaginal deliveries Musculoskeletal Surgical History: Reports: Arthroscopic Knee Social & Family History - Family History Family Medical History: No Pertinent Family History - Tobacco Use Tobacco Use Status *Q: Former Tobacco User Used Tobacco, but Quit: Yes Month/Year Tobacco Last Used: 2019 - Caffeine Use Caffeine Use: Reports: Energy Drinks - Recreational Drug Use Recreational Drug Use: No - Living Situation & Occupation Living situation: Reports: Single, with Family (5 kids) 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[employer]) ED ROS ENT - Review of Systems Review Of Systems: See Below Constitutional: Denies: Fever, Chills HEENT: Reports: Other (As per HPI) Respiratory: Denies: Shortness of Breath, Cough Cardiovascular: Reports: No Symptoms Endocrine: Reports: No Symptoms GI/Abdominal: Reports: No Symptoms : Reports: No Symptoms Musculoskeletal: Reports: No Symptoms Skin: Reports: No Symptoms Neurological: Reports: Other (Recent stroke with resolution) Psychiatric: Reports: No Symptoms ED EXAM, ENT - Physical Exam Exam: See Below Exam Limited By: No Limitations General Appearance: Alert, WD/WN, Mild Distress Eye Exam: Bilateral Eye: Normal Inspection Ears: Normal External Exam, Normal Canal, Normal TMs Nose: Normal Inspection Mouth/Throat: Normal Gums, Normal Lips, Normal Oropharynx, Other (Her tongue does appear to be slightly larger than her oral cavity though there is no massive enlargement of the tongue. I can see her oropharynx well so the base of the tongue is not markedly swollen. When I distract her she does not spit her saliva out but she actually swallows it.) Head: Normocephalic Neck: Supple, Non-Tender, Other (There is no swelling on the outside of the neck and her trachea moves freely, there is no lymphadenopathy.) Respiratory/Chest: No Respiratory Distress, Lungs Clear, Normal Breath Sounds Cardiovascular: Regular Rate, Rhythm, No Murmur GI/Abdominal: Soft Back: Full Range of Motion Extremities: Normal Inspection, Normal Range of Motion Neurological: Alert, Oriented Psychiatric: Anxious Skin: Warm, Dry Course - Vital Signs Last Recorded V/S: Last Vital Signs Temp 97.5 F 05/01/20 04:14 Pulse 86 05/01/20 04:14 Resp 16 05/01/20 04:14 BP 158/89 H 05/01/20 04:14 Pulse Ox - Orders/Labs/Meds Orders: Active Orders 24 hr Category Date Time Status Sodium Chloride 0.9% [Normal Saline] 1,000 ml Med 05/01/20 04:45 Active IV ASDIRECTED Medication Orders Sodium Chloride (Normal Saline) 1,000 mls @ 500 mls/hr IV ASDIRECTED LISA Last Admin: 05/01/20 04:45 Dose: 500 mls/hr Documented by: TOMMIE Labs: Laboratory Tests 05/01/20 05/01/20 Range/Units 04:45 04:45 WBC 6.40 (3.98-10.04) K/mm3 RBC 4.64 (3.98-5.22) M/mm3 Hgb 11.4 (11.2-15.7) gm/dl Hct 37.3 (34.1-44.9) % MCV 80.4 (79.4-94.8) fl MCH 24.6 L (25.6-32.2) pg MCHC 30.6 L (32.2-35.5) g/dl RDW Std Deviation 50.3 H (36.4-46.3) fL Plt Count 143 L (182-369) K/mm3 MPV 11.7 (9.4-12.3) fl Neut % (Auto) 55.3 (34.0-71.1) % Lymph % (Auto) 32.3 (19.3-51.7) % Park % (Auto) 10.5 (4.7-12.5) % Eos % (Auto) 1.4 (0.7-5.8) Baso % (Auto) 0.3 (0.1-1.2) % Neut # (Auto) 3.54 (1.56-6.13) K/mm3 Lymph # (Auto) 2.07 (1.18-3.74) K/mm3 Park # (Auto) 0.67 H (0.24-0.36) K/mm3 Eos # (Auto) 0.09 (0.04-0.36) K/mm3 Baso # (Auto) 0.02 (0.01-0.08) K/mm3 Sodium 142 (136-145) mEq/L Potassium 3.4 L (3.5-5.1) mEq/L Chloride 104 (98-107) mEq/L Carbon Dioxide 27 (21-32) mEq/L Anion Gap 14.4 (5-15) BUN 16 (7-18) mg/dL Creatinine 0.7 (0.55-1.02) mg/dL Est Cr Clr Drug Dosing 77.39 mL/min Estimated GFR (MDRD) > 60 (>60) mL/min BUN/Creatinine Ratio 22.9 H (14-18) Glucose 128 H (74-106) mg/dL Calcium 8.7 (8.5-10.1) mg/dL Total Bilirubin 0.2 (0.2-1.0) mg/dL AST 34 (15-37) U/L ALT 29 (14-59) U/L Alkaline Phosphatase 134 H (46-116) U/L Creatine Kinase 55 (26-192) U/L Total Protein 8.1 (6.4-8.2) g/dl Albumin 3.7 (3.4-5.0) g/dl Globulin 4.4 gm/dL Albumin/Globulin Ratio 0.8 L (1-2) Meds: Medications Generic Name Dose Route Start Last Admin Trade Name Freq PRN Reason Stop Dose Admin Sodium Chloride 1,000 mls @ 500 mls/hr 05/01/20 04:45 05/01/20 04:45 Normal Saline IV 500 mls/hr ASDIRECTED LISA Administration Discontinued Medications Generic Name Dose Route Start Last Admin Trade Name Freq PRN Reason Stop Dose Admin Diphenhydramine HCl 50 mg 05/01/20 04:32 05/01/20 04:48 Benadryl IVPUSH 05/01/20 04:33 50 mg ONETIME ONE Administration Famotidine 20 mg 05/01/20 04:32 05/01/20 04:50 Pepcid IVPUSH 05/01/20 04:33 20 mg ONETIME ONE Administration Methylprednisolone Sodium Succinate 125 mg 05/01/20 04:32 05/01/20 04:53 Solu-Medrol IVPUSH 05/01/20 04:33 125 mg ONETIME ONE Administration - Re-Assessments/Exams Free Text/Narrative Re-Assessment/Exam: 05/01/20 06:10 Patient is feeling much better and feels like her throat is opening up more. She has been sleeping in the room peacefully for the last hour. I also explained to her that lisinopril can cause this kind of problem but I think the combination of the rovustatin as well as lisinopril could be the reason why it did happen. Going to stop the Crestor though she needs to continue her lisinopril to control her blood pressure. She needs to follow-up with her family doctor as well as her neurologist as soon as possible this week. Departure - Departure Time of Disposition: 06:12 Disposition: Home, Self-Care 01 Condition: Good Clinical Impression: Mild tongue swelling Angioedema Qualifiers: Encounter type: initial encounter Qualified Code(s): T78.3XXA - Angioneurotic edema, initial encounter - Discharge Information *PRESCRIPTION DRUG MONITORING PROGRAM REVIEWED*: Not Applicable *COPY OF PRESCRIPTION DRUG MONITORING REPORT IN PATIENT GLADIS: Not Applicable Instructions: Angioedema, [id number] Forms: ED Department Discharge Additional Instructions: You were here because you had some mild tongue swelling which made it feel like you could not swallow, we have watched you and it seems to be better with the medications and the cold fluids, you need to stay on cold foods and fluids today do not drink hot fluids or hot foods since it can exacerbate the symptoms, we will going to stop the Crestor but I do not want to stop the lisinopril or the amlodipine but when you follow-up with your family doctor on Sunday you need to let them know that you had this reaction and I think it is a combination of the Crestor and lisinopril that might of caused it but he might want to change her blood pressure medicine to something other than lisinopril since this can also cause this mild tongue swelling, if there is worsening of your symptoms you need to return to the ER. Sepsis Event Note (ED) - Evaluation Sepsis Screening Result: No Definite Risk - Focused Exam Vital Signs: Vital Signs Temp Pulse Resp BP 05/01/20 04:14 97.5 F 86 16 158/89 H - My Orders Last 24 Hours: My Active Orders 05/01/20 04:45 Sodium Chloride 0.9% [Normal Saline] 1,000 ml IV ASDIRECTED - Assessment/Plan Last 24 Hours: My Active Orders 05/01/20 04:45 Sodium Chloride 0.9% [Normal Saline] 1,000 ml IV ASDIRECTED
[2020-05-01] MEDS ORDERED: Sodium Chloride 0.9% 1,000 ML IV SCH (04:45)
== END 2020-05-01 06:26 | disposition home or self-care (01) ==
LOC: JD.ED 04:09
DX: T78.3XXA Angioneurotic edema, initial encounter (principal); I10 Essential (primary) hypertension; M06.9 Rheumatoid arthritis, unspecified; Z86.73 Personal history of transient ischemic attack (TIA), and cerebral infarction without residual deficits; Z79.82 Long term (current) use of aspirin; Z79.899 Other long term (current) drug therapy; Z87.891 Personal history of nicotine dependence
CPT/HCPCS: 36415; 80053; 82550; 85025; 96374; 96375; 99284; J1200; J2930; J3490; J7030

== ENCOUNTER 2020-05-01 19:06 | Emergency (ER) | payer MEDICAID ==
--- NOTE | 2020-05-01 19:40 | EDM.PDOC ---
ED HPI GENERAL MEDICAL PROBLEM - General Chief Complaint: Neurological Problem Stated Complaint: STROKE SYMPTOMS Time Seen by Provider: 05/01/20 19:22 Source of Information: Reports: Patient History Limitations: Reports: No Limitations - History of Present Illness INITIAL COMMENTS - FREE TEXT/NARRATIVE: This is a 44-year-old female. Back on 23 April she came into the ER with a dense right upper hemiparesis and expressive aphasia and some mild lower extremity weakness. After she got into the ER CT scan did not show any acute bleed but she did have a finding of a low-density area in the left basal ganglia. When she got back from the CT scan on the her symptoms resolved spontaneously this last for about 15 minutes and then she started having complete right-sided parietal hemiparesis again with difficulty in talking and they gave her thrombolytics. They did a CT angio of the head that showed a single anterior communicating artery which larger than usual but no obvious bleed or ischemic stroke they also did an angio of the neck that mild atherosclerotic changes in the carotid bulb but no acute other findings. Eventually sent down to [facility] to the ICU for admission due to her strokelike symptoms and her thrombolytic therapy. She was seen in the ER last night for some angio edema of her tongue that was very mild. It was believed to be to the combination of rosuvastatin and lisinopril. She was on pill and amlodipine because that she has a central high blood pressure. The rovustatin stopped but she was told to continue the lisinopril to control her blood pressure. She apparently went home went to bed around 6 AM when she woke up around 10 AM or 11 AM she stated that she had weakness in her right upper extremity and she had difficulty in talking. She did take her amlodipine but did not take the lisinopril. She then went back to bed and got up around 3 PM was able to walk but still had weakness in her right upper extremity and she went to the bathroom and then turned around having some lightheadedness not dizziness and went back to bed again until her family showed up around 6 PM. They noted that she had weakness in her right upper extremity was not able to pick things up they kept falling out of her hand she had very slow exaggerated speech. They brought her to the ER for evaluation. Headache she denies any nausea and vomiting. She has had no recent colds coughs or illnesses. 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: Musculoskeletal History: Reports: RA Other Musculoskeletal History: torn ligaments to the left knee Neurological History: Reports: CVA Psychiatric History: Reports: Anxiety, Depression Dermatologic History: Reports: Psoriasis Other Dermatologic History: psorisis - Past Surgical History Female Surgical History: Reports: Section Other Female Surgeries/Procedures: 8 vaginal deliveries Musculoskeletal Surgical History: Reports: Arthroscopic Knee Social & Family History - Family History Family Medical History: No Pertinent Family History - Tobacco Use Tobacco Use Status *Q: Current Every Day Tobacco User Years of Tobacco use: 30 Packs/Tins Daily: 0.5 - Caffeine Use Caffeine Use: Reports: Energy Drinks - Recreational Drug Use Recreational Drug Use: Yes Recreational Drug Type: Reports: Marijuana/Hashish Recreational Drug Use Frequency: Daily - Living Situation & Occupation Living situation: Reports: Single, with Family (5 kids) 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[employer]) ED ROS GENERAL - Review of Systems Review Of Systems: See Below Constitutional: Denies: Fever, Chills HEENT: Reports: No Symptoms, Other (Mild expressive aphasia history of mild angioedema of the tongue) Respiratory: Reports: No Symptoms Cardiovascular: Denies: Chest Pain Endocrine: Reports: No Symptoms GI/Abdominal: Denies: Abdominal Pain, Nausea, Vomiting : Reports: No Symptoms Musculoskeletal: Reports: Other (Right upper extremity weakness) Skin: Reports: No Symptoms Neurological: Reports: Trouble Speaking, Weakness Psychiatric: Reports: Anxiety Hematologic/Lymphatic: Reports: No Symptoms ED EXAM, NEURO - Physical Exam Exam: See Below Exam Limited By: No Limitations General Appearance: Alert, WD/WN, Anxious Eye Exam: Bilateral Eye: Normal Inspection, PERRL Ears: Normal External Exam, Normal Canal, Normal TMs Nose: Normal Inspection Throat/Mouth: Other (Has what I believed to be a mild expressive aphasia though she is able to talk and express herself it is very slow and labored speech.) Head Exam: Normocephalic Neck: Normal Inspection, Supple, Full Range of Motion. No: Carotid Bruit Respiratory/Chest: No Respiratory Distress, Lungs Clear, Normal Breath Sounds Cardiovascular: Regular Rate, Rhythm, No Murmur GI/Abdominal: Soft, Non-Tender Neurological: Alert, Oriented x 3, Other (There is to have weakness in the right upper extremity and difficulty in gripping with her hand. Her right lower extremity appears to be symmetrical with the left lower extremity. Her NIH score initially was 2.) Back Exam: Full Range of Motion Extremities: Normal Inspection, Other (Her neurological exam as per above) Psychiatric: Anxious Skin Exam: Warm, Dry #1 Interpretation EKG Date: 05/01/20 Time: 19:20 EKG Interpretation Comments: EKG shows a sinus tachycardia rate of 102. She does appear to have some left atrial enlargement there is no acute ST or T wave changes and no acute ischemia noted. This is essentially the same as the last EKG we got on 04/23/2020. Course - Vital Signs Last Recorded V/S: Last Vital Signs Temp 98 F 05/01/20 21:30 Pulse 89 05/01/20 21:30 Resp 18 05/01/20 21:30 BP 147/97 H 05/01/20 21:30 Pulse Ox 100 05/01/20 21:30 - Orders/Labs/Meds Orders: Active Orders 24 hr Category Date Time Status Head wo Cont [CT] Stat Exams 05/01/20 19:28 Taken Labs: Laboratory Tests 05/01/20 05/01/20 05/01/20 Range/Units 19:15 19:19 20:00 WBC 7.08 (3.98-10.04) K/mm3 RBC 4.93 (3.98-5.22) M/mm3 Hgb 12.2 (11.2-15.7) gm/dl Hct 39.1 (34.1-44.9) % MCV 79.3 L (79.4-94.8) fl MCH 24.7 L (25.6-32.2) pg MCHC 31.2 L (32.2-35.5) g/dl RDW Std Deviation 48.9 H (36.4-46.3) fL Plt Count 132 L (182-369) K/mm3 MPV 10.5 (9.4-12.3) fl Neut % (Auto) 77.6 H (34.0-71.1) % Lymph % (Auto) 17.5 L (19.3-51.7) % Whitley % (Auto) 4.7 (4.7-12.5) % Eos % (Auto) 0 L (0.7-5.8) Baso % (Auto) 0.1 (0.1-1.2) % Neut # (Auto) 5.49 (1.56-6.13) K/mm3 Lymph # (Auto) 1.24 (1.18-3.74) K/mm3 Whitley # (Auto) 0.33 (0.24-0.36) K/mm3 Eos # (Auto) 0.00 L (0.04-0.36) K/mm3 Baso # (Auto) 0.01 (0.01-0.08) K/mm3 PT 10.3 (9.7-12.0) SECONDS INR 0.96 Sodium (136-145) mEq/L Potassium (3.5-5.1) mEq/L Chloride (98-107) mEq/L Carbon Dioxide (21-32) mEq/L Anion Gap (5-15) BUN (7-18) mg/dL Creatinine (0.55-1.02) mg/dL Est Cr Clr Drug Dosing mL/min Estimated GFR (MDRD) (>60) mL/min BUN/Creatinine Ratio (14-18) Glucose (74-106) mg/dL POC Glucose 117 H (70-105) mg/dL Calcium (8.5-10.1) mg/dL Total Bilirubin (0.2-1.0) mg/dL AST (15-37) U/L ALT (14-59) U/L Alkaline Phosphatase (46-116) U/L Troponin I (0.00-0.056) ng/mL Total Protein (6.4-8.2) g/dl Albumin (3.4-5.0) g/dl Globulin gm/dL Albumin/Globulin Ratio (1-2) Urine Opiates Screen (PJIZED=583) Ur Buprenorphine Scrn (CUTOFF=10) Ur Oxycodone Screen (KPC5CQ=477) Urine Methadone Screen (BESTEZ=895) Ur Propoxyphene Screen (QHOBGT=256) Ur Barbiturates Screen (FHOCAC=904) Ur Tricyclics Screen (HRNQWW=997) Ur Phencyclidine Scrn (CUTOFF=25) Ur Amphetamine Screen (BBTVGK=565) U Methamphetamines Scrn (YLSIFW=421) U Benzodiazepines Scrn (DHVYPB=040) U Cocaine Metab Screen (XJJRKB=184) U Marijuana (THC) Screen (CUTOFF=50) 05/01/20 05/01/20 Range/Units 20:00 20:20 WBC (3.98-10.04) K/mm3 RBC (3.98-5.22) M/mm3 Hgb (11.2-15.7) gm/dl Hct (34.1-44.9) % MCV (79.4-94.8) fl MCH (25.6-32.2) pg MCHC (32.2-35.5) g/dl RDW Std Deviation (36.4-46.3) fL Plt Count (182-369) K/mm3 MPV (9.4-12.3) fl Neut % (Auto) (34.0-71.1) % Lymph % (Auto) (19.3-51.7) % Whitley % (Auto) (4.7-12.5) % Eos % (Auto) (0.7-5.8) Baso % (Auto) (0.1-1.2) % Neut # (Auto) (1.56-6.13) K/mm3 Lymph # (Auto) (1.18-3.74) K/mm3 Whitley # (Auto) (0.24-0.36) K/mm3 Eos # (Auto) (0.04-0.36) K/mm3 Baso # (Auto) (0.01-0.08) K/mm3 PT (9.7-12.0) SECONDS INR Sodium 141 (136-145) mEq/L Potassium 4.0 (3.5-5.1) mEq/L Chloride 103 (98-107) mEq/L Carbon Dioxide 25 (21-32) mEq/L Anion Gap 17.0 H (5-15) BUN 12 (7-18) mg/dL Creatinine 0.7 (0.55-1.02) mg/dL Est Cr Clr Drug Dosing 77.39 mL/min Estimated GFR (MDRD) > 60 (>60) mL/min BUN/Creatinine Ratio 17.1 (14-18) Glucose 102 (74-106) mg/dL POC Glucose (70-105) mg/dL Calcium 9.7 (8.5-10.1) mg/dL Total Bilirubin 0.2 (0.2-1.0) mg/dL AST 27 (15-37) U/L ALT 31 (14-59) U/L Alkaline Phosphatase 142 H (46-116) U/L Troponin I < 0.017 (0.00-0.056) ng/mL Total Protein 8.8 H (6.4-8.2) g/dl Albumin 4.0 (3.4-5.0) g/dl Globulin 4.8 gm/dL Albumin/Globulin Ratio 0.8 L (1-2) Urine Opiates Screen Negative (RKOMGM=891) Ur Buprenorphine Scrn Negative (CUTOFF=10) Ur Oxycodone Screen Negative (XPZ4WW=821) Urine Methadone Screen Negative (CCIEQQ=065) Ur Propoxyphene Screen Negative (FTXXLJ=550) Ur Barbiturates Screen Negative (YYLKTX=493) Ur Tricyclics Screen Negative (CZAVBS=651) Ur Phencyclidine Scrn Negative (CUTOFF=25) Ur Amphetamine Screen Negative (KJUGHD=414) U Methamphetamines Scrn Negative (QFSSTV=315) U Benzodiazepines Scrn Negative (WHACGS=796) U Cocaine Metab Screen Negative (FXOZRQ=700) U Marijuana (THC) Screen Presumptive positive H (CUTOFF=50) - Radiology Interpretation Free Text/Narrative:: CT scan of the head shows no acute intercranial abnormality. - Re-Assessments/Exams Free Text/Narrative Re-Assessment/Exam: 05/01/20 19:57 The patient came to the ER we evaluated her with an NIH score EKG and a blood sugar of 117. EKG does not show any acute changes compared to the last EKG gotten on her on the . Her NIH score was 2 due to her difficult speech and some possible weakness in the right lower extremity. When the nurses were observing her she would use her right arm but she complains of not having any top steep tender. She actually pushed herself up in bed with both her hands and her legs to adjust herself in the bed. Her complaint is not her leg because she walked at home but her complaint seems to be a right upper extremity and the manipulation of things with her hand. Also her speech seems to be a problem. 05/01/20 20:00 her blood pressure on arrival was 149/110, the monitor continues to show a blood pressure of 170s/90s. Still below the recommended systolic <220 and diastolic of <120. I am a little uncomfortable with the BP being that high. 05/01/20 20:24 Patient's blood pressure is fluctuating with the most recent blood pressure of 184/101. I am going to touch her with 10 of labetalol IV just to bring it down a smidgen. The patient is not a candidate for thrombolytics and she had thrombolytics on the of this month. That is within the 3-month timeframe has been having these symptoms for at least 7 hours that we are aware of. 05/01/20 20:27 Check of her neurological status appears that her right lower extremity is back to normal according to the patient and she is able to move her right upper extremity and hold it however her top steep tender strength is slightly less in the left top steep tender strength. She still has that labored slow talking though she is distinct in her language. 05/01/20 20:51 Evaluation of the patient's, she was able to walk to the bathroom with no difficulty and she felt like she had full strength of her right lower extremity. She was able to use her right arm effectively but she is still somewhat clumsy with the use of her right hand and she still has that labored deliberate speech noted. 05/01/20 20:53 Patient's lab work shows a CBC with a hemoglobin of 12.2 white count of 7.08 and platelets of 132,000. She is noted to have microcytic indices of her RBCs. Her INR and PT were normal her CMP was essentially normal her UDS was presumptively positive for marijuana. 05/01/20 20:56 On arrival her NIH was 2 related to her speech and her right lower extremity weakness and a repeat NIH score one hour later was 1 related to her speech only. 05/01/20 21:23 Called I called [facility] and spoke to Dr. Conte neurologist who suggested she needed to be transferred and then I spoke to the hospitalist Dr. Adia Marion to accept the patient in transport for further evaluation and treatment. The patient has been stable while she has been here and actually improving in her symptoms though she still has clumsiness and weakness of her right hand and she still has a very slow and deliberate speech. Departure - Departure Time of Disposition: 21:53 Disposition: DC/Tfer to Acute Hospital 02 Condition: Fair Clinical Impression: Difficulty with speech, Essential hypertension, Right arm weakness CVA (cerebral vascular accident) Qualifiers: CVA mechanism: unspecified Qualified Code(s): I63.9 - Cerebral infarction, unspecified - Discharge Information *PRESCRIPTION DRUG MONITORING PROGRAM REVIEWED*: Not Applicable *COPY OF PRESCRIPTION DRUG MONITORING REPORT IN PATIENT GLADIS: Not Applicable Sepsis Event Note (ED) - Evaluation Sepsis Screening Result: No Definite Risk - Focused Exam Vital Signs: Vital Signs Temp Pulse Resp BP Pulse Ox 05/01/20 21:30 98 F 89 18 147/97 H 100 05/01/20 19:14 98.8 F 105 H 16 149/110 H 100 ED Communication - ED Communication Date/Time Date: 05/01/20 Time Called: 21:24 - Discussed Case With (1) Discussed Case With (1): 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 Cheek (He agrees to accept the patient in transport for further evaluation and treatment) Person/s Notified (2): Dr. Conte (Neurologist) - My Orders Last 24 Hours: My Active Orders 05/01/20 19:28 Head wo Cont [CT] Stat - Assessment/Plan Last 24 Hours: My Active Orders 05/01/20 19:28 Head wo Cont [CT] Stat
[2020-05-01 21:48] VITALS: BP 147/97; PULSE 89
--- NOTE | 2020-05-02 16:00 | CT ---
Head CT Technique: Multiple axial sections through the brain were obtained. Intravenous contrast was not utilized. Comparison: Prior head CT exam of 04/23/19. Findings: Well-defined low density area is seen within the left periventricular white matter and left basal ganglia. This is stable from prior study. No other abnormal parenchymal densities are seen. No evidence of intracranial hemorrhage. No midline shift or mass-effect is appreciated. Bone window settings were reviewed. The visualized mastoid sinuses and paranasal sinuses show nothing acute. No acute calvarial finding is appreciated. Impression: 1. Low density area within the left periventricular white matter and basal ganglia on the left side. This is similar to prior exam. Recommend MRI (without and with contrast) to further evaluate. 2. Nothing acute is otherwise seen on noncontrast head CT exam. Diagnostic code #3 I agree with preliminary report from [facility], finalized on 05/01/20, 8:55 PM [employer]
== END 2020-05-01 21:45 ==
LOC: JD.ED 19:06
DX: I63.9 Cerebral infarction, unspecified (principal); R00.0 Tachycardia, unspecified; I10 Essential (primary) hypertension; M06.9 Rheumatoid arthritis, unspecified; Z72.0 Tobacco use; Z88.8 Allergy status to other drugs, medicaments and biological substances; Z79.82 Long term (current) use of aspirin; Z79.899 Other long term (current) drug therapy
CPT/HCPCS: 36415; 70450; 70450-26; 80053; 80306; 82962; 84484; 85025; 85610; 93005; 99285; 99285-25

== ENCOUNTER 2020-05-24 19:22 | Emergency (ER) | payer MEDICAID ==
[2020-05-24 19:33] VITALS: BP 141/89; PULSE 79
--- NOTE | 2020-05-24 19:47 | EDM.PDOC ---
ED HPI GENERAL MEDICAL PROBLEM - General Chief Complaint: ENT Problem Stated Complaint: NOSE BLEED Time Seen by Provider: 05/24/20 19:28 Source of Information: Reports: Patient, RN Notes Reviewed History Limitations: Reports: No Limitations - History of Present Illness INITIAL COMMENTS - FREE TEXT/NARRATIVE: Patient is a 44-year-old female presenting to the emergency department with complaints of a nosebleed that lasted approximately 30 minutes. Patient states she had bleeding from her left nare. She pinched it and stopped. Soon thereafter she had blood coming out of her mouth and then her left nare began bleeding as well. The bleeding lasted approximately 30 minutes total. It has not recurred since that time. She is taking Plavix and aspirin for previous stroke. Her blood pressure today is minimally elevated at 141/89. 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: Musculoskeletal History: Reports: RA Other Musculoskeletal History: torn ligaments to the left knee Neurological History: Reports: CVA Psychiatric History: Reports: Anxiety, Depression Dermatologic History: Reports: Psoriasis Other Dermatologic History: psorisis - Past Surgical History Female Surgical History: Reports: Section Other Female Surgeries/Procedures: 8 vaginal deliveries Musculoskeletal Surgical History: Reports: Arthroscopic Knee Social & Family History - Family History Family Medical History: No Pertinent Family History - Tobacco Use Tobacco Use Status *Q: Current Every Day Tobacco User Years of Tobacco use: 21 Packs/Tins Daily: 0.5 - Caffeine Use Caffeine Use: Reports: Energy Drinks - Recreational Drug Use Recreational Drug Use: Yes Drug Use in Last 12 Months: Yes Recreational Drug Type: Reports: Marijuana/Hashish Recreational Drug Use Frequency: Daily - Living Situation & Occupation Living situation: Reports: Single, with Family (5 kids) 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[employer]) ED ROS ENT - Review of Systems Review Of Systems: See Below Constitutional: Reports: No Symptoms HEENT: Reports: Nosebleed Respiratory: Reports: No Symptoms Cardiovascular: Reports: No Symptoms Endocrine: Reports: No Symptoms GI/Abdominal: Reports: No Symptoms : Reports: No Symptoms Musculoskeletal: Reports: No Symptoms Skin: Reports: No Symptoms Neurological: Reports: No Symptoms Psychiatric: Reports: No Symptoms Hematologic/Lymphatic: Reports: No Symptoms Immunologic: Reports: No Symptoms ED EXAM, ENT - Physical Exam Exam: See Below General Appearance: Alert, WD/WN, No Apparent Distress Nose: Normal Inspection, Normal Mucousa, No Blood Mouth/Throat: Normal Inspection, Normal Gums, Normal Lips, Normal Oropharynx, Normal Teeth Respiratory/Chest: No Respiratory Distress, Lungs Clear, Normal Breath Sounds, N o Accessory Muscle Use, Chest Non-Tender Cardiovascular: Normal Peripheral Pulses, Regular Rate, Rhythm, No Edema, No Gallop, No JVD, No Murmur, No Rub Neurological: Alert, Oriented, CN II-XII Intact, Normal Cognition, Normal Gait, Normal Reflexes, No Motor/Sensory Deficits Psychiatric: Normal Affect, Normal Mood Skin: Warm, Dry, Intact, Normal Color, No Rash Course - Vital Signs Last Recorded V/S: Last Vital Signs Temp 97.5 F 05/24/20 19:30 Pulse 79 05/24/20 19:30 Resp 16 05/24/20 19:30 BP 141/89 H 05/24/20 19:30 Pulse Ox 99 05/24/20 19:30 - Re-Assessments/Exams Free Text/Narrative Re-Assessment/Exam: Patient is a 44-year-old female presenting to the emergency department with complaints of a left-sided nosebleed which lasted approximately 30 minutes total. She was concerned because she had some blood coming out of her mouth when it was bleeding. She has had no further bleeding. On exam, there is no obvious source of the bleeding and there is no blood visible in the nare or the oropharynx. Recommend that patient begin using saline nasal spray or [place] gel to her nostrils. Discussed use of humidifier in her sleeping quarters to keep the mucous membranes moist. She carries a bottle of Afrin in her purse from a previous nosebleed, however she did not use it this evening. Discussed return precautions. Discharge instructions as documented. Departure - Departure Time of Disposition: 19:48 Disposition: Home, Self-Care 01 Condition: Good Clinical Impression: Epistaxis - Discharge Information *PRESCRIPTION DRUG MONITORING PROGRAM REVIEWED*: No *COPY OF PRESCRIPTION DRUG MONITORING REPORT IN PATIENT GLADIS: No Instructions: Nosebleed, [id number] Referrals: PCP,None [Primary Care Provider] - Additional Instructions: You were seen in the emergency department today for a nosebleed that lasted 30 minutes but had stopped prior to coming to ER. As we discussed, it is not uncommon to have blood come out your mouth when you have a nosebleed as it backs up into her sinuses and drains into the back of your throat. Recommend that you purchase [id number] saline nasal spray as well as [place] gel. Apply this anterior nostrils a couple times daily. You may also use a humidifier in your sleeping quarters. Continue to take your medications as prescribed. If you should experience a recurrence of nosebleed which will not stop, please do not hesitate to return to the emergency department for reevaluation. Sepsis Event Note (ED) - Evaluation Sepsis Screening Result: No Definite Risk - Focused Exam Vital Signs: Vital Signs Temp Pulse Resp BP Pulse Ox 05/24/20 19:30 97.5 F 79 16 141/89 H 99
== END 2020-05-24 20:04 | disposition home or self-care (01) ==
LOC: JD.ED 19:22
DX: R04.0 Epistaxis (principal); I10 Essential (primary) hypertension; M06.9 Rheumatoid arthritis, unspecified; Z72.0 Tobacco use; Z79.82 Long term (current) use of aspirin; Z79.899 Other long term (current) drug therapy; Z88.8 Allergy status to other drugs, medicaments and biological substances
CPT/HCPCS: 99282; 99283

== ENCOUNTER 2022-01-01 03:18 | Emergency (ER) | payer MEDICAID ==
[2022-01-01 03:29] VITALS: BP 168/93; PULSE 74
[2022-01-01] MEDS ORDERED: Alum Hydrox/Mag Hydrox/Simeth 30 ML, Lidocaine 2% 15 ML PO STA ×2 (03:48)
[2022-01-01] MEDS ORDERED: Potassium Chloride 20 MEQ Tab.ER PO ONE (05:44)
[2022-01-01] MEDS ORDERED: Famotidine 20 MG Tab PO STA (05:48)
== END 2022-01-01 06:13 | disposition home or self-care (01) ==
LOC: JD.ED 03:18
DX: K21.9 Gastro-esophageal reflux disease without esophagitis (principal); E87.6 Hypokalemia; I10 Essential (primary) hypertension; F17.210 Nicotine dependence, cigarettes, uncomplicated; E66.9 Obesity, unspecified; Z68.41 Body mass index [BMI] 40.0-44.9, adult; Z88.8 Allergy status to other drugs, medicaments and biological substances; Z79.82 Long term (current) use of aspirin
CPT/HCPCS: 36415; 71045; 80053; 83735; 84484; 85025; 85379; 93005; 99285; A9270

== ENCOUNTER 2022-12-08 23:10 | Emergency (ER) | payer MEDICAID ==
[2022-12-08] MEDS ORDERED: Sodium Chloride 0.9% 100 ML IV SCH (23:45)
[2022-12-08 23:48] LABS: BASOPHILS PERCENT AUTO 0.4 % (0.0-1.0); EOSINOPHILS ABSOLUTE AUTO 0.1 K/mm3 (0.0-0.4); HEMATOCRIT 39.6 % (37.0-47.0); HEMOGLOBIN 12.7 gm/dl (12.0-16.0); IMMATURE GRAN ABSOLUTE AUTO 0.02 K/mm3 (0.00-0.05); IMMATURE GRAN PERCENT AUTO 0.2 % (0.0-0.4); LYMPHOCYTES ABSOLUTE AUTO 2.4 K/mm3 (1.0-4.8); LYMPHOCYTES PERCENT AUTO 29.1 % (24.0-44.0); MEAN CORPUSCULAR HEMOGLOBIN 26.3 pg (28.0-32.0); MEAN CORPUSCULAR HGB CONC 32.1 g/dl (32.0-36.0); MEAN CORPUSCULAR VOLUME 82.2 fl (83.0-99.0); MEAN PLATELET VOLUME 10.2 fl (9.4-12.3); MONOCYTES ABSOLUTE AUTO 0.5 K/mm3 (0.0-0.8); MONOCYTES PERCENT AUTO 6.4 % (0.0-8.0); NEUTROPHILS ABSOLUTE AUTO 5.2 K/mm3 (1.8-7.7); NEUTROPHILS PERCENT AUTO 62.9 % (41.0-71.0); PLATELET COUNT,PLT 239 K/mm3 (150-400); RED BLOOD CELL COUNT 4.82 M/mm3 (4.10-5.30); WHITE BLOOD CELL COUNT,WBC 8.31 K/mm3 (3.9-11.3)
[2022-12-08] MEDS ORDERED: Iopamidol 755 Mg/ML 100 ML Bottle IVPUSH ONE (23:48)
[2022-12-08] MEDS ORDERED: Sodium Chloride 0.9% 10 ML SDV FLUSH ONE (23:48)
[2022-12-09 00:22] LABS: A/G RATIO 0.7 (1-2); ALBUMIN 3.4 g/dl (3.4-5.0); ANION GAP 11.4 (5-15); BILIRUBIN TOTAL 0.2 mg/dL (0.2-1.0); C-REACTIVE PROTEIN 2.1 mg/dL (<1.0); CALCIUM 9.1 mg/dL (8.5-10.1); CREATININE 0.8 mg/dL (0.55-1.02); EST CRCL DRUG DOSING (CG) 65.6 mL/min; MAGNESIUM 1.8 mg/dL (1.8-2.4); POTASSIUM,K 3.4 mEq/L (3.5-5.1); PROTEIN TOTAL,TP 8.1 g/dl (6.4-8.2); TSH 1.589 uIU/mL (0.358-3.74)
[2022-12-09 00:57] LABS: APPEARANCE,URINE CLEAR (Clear); BILIRUBIN,URINE NEGATIVE (Negative); COLOR,URINE YELLOW (Yellow); GLUCOSE,URINE NEGATIVE (Negative); KETONES,URINE NEGATIVE (Negative); LEUKOCYTE ESTERASE,URINE NEGATIVE (Negative); NITRITE,URINE NEGATIVE (Negative); OCCULT BLOOD,URINE 1+ (Negative); PROTEIN,URINE NEGATIVE (Negative); UROBILINOGEN,URINE 0.2 (0.2-1.0)
[2022-12-09 01:06] LABS: BARBITURATE SCREEN,URINE NEGATIVE (CUTOFF=200); BENZODIAZEPINES SCREEN,URINE NEGATIVE (CUTOFF=150); BUPRENORPHINE SCREEN,URINE NEGATIVE (CUTOFF=10); METHADONE SCREEN, URINE NEGATIVE (CUTOFF=200); METHAMPHETAMINES SCREEN, URINE NEGATIVE (CUTOFF=500); OXYCODONE SCREEN,URINE NEGATIVE (CUT0FF=100); PROPOXYPHENE SCREEN,URINE NEGATIVE (CUTOFF=300); THC SCREEN,URINE 20 NG/ML PRESUMPTIVE POSITIVE (CUTOFF=50)
[2022-12-09 01:10] LABS: AMPHETAMINES SCREEN, URINE NEGATIVE (CUTOFF=500)
[2022-12-09 01:23] LABS: BACTERIA,URINE RARE /hpf (FEW); MUCUS,URINE FEW /hpf (FEW); RBC,URINE 0-5 /hpf (0-5); SQUAMOUS EPITHELIAL CELLS,UR 0-5 /hpf (0-5); WBC,URINE 0-5 /hpf (0-5)
[2022-12-09 03:29] VITALS: BP 116/79; PULSE 84
== END 2022-12-09 03:15 | disposition home or self-care (01) ==
LOC: JD.ED 23:10
DX: G45.9 Transient cerebral ischemic attack, unspecified (principal); I10 Essential (primary) hypertension; E66.9 Obesity, unspecified; Z88.8 Allergy status to other drugs, medicaments and biological substances; Z68.41 Body mass index [BMI] 40.0-44.9, adult
CPT/HCPCS: 36415; 70450; 70450-26; 70496; 70496-26; 70498; 70498-26; 80053; 80306; 81001; 82947; 83735; 84443; 85025; 85652; 86140; 93005; 93010; 99283; 99284

== ENCOUNTER 2023-03-06 02:49 | Emergency (ER) | payer MEDICAID ==
[2023-03-06] MEDS ORDERED: Acetaminophen/HYDROcodone 325-5 MG Tab PO ONE (03:39)
[2023-03-06] MEDS ORDERED: Clindamycin HCl 150 MG Cap PO ONE (03:39)
[2023-03-06 04:25] VITALS: BP 136/83; PULSE 78
== END 2023-03-06 04:10 | disposition home or self-care (01) ==
LOC: JD.ED 02:49
DX: K08.89 Other specified disorders of teeth and supporting structures (principal); F17.210 Nicotine dependence, cigarettes, uncomplicated; E66.9 Obesity, unspecified; I10 Essential (primary) hypertension; Z86.73 Personal history of transient ischemic attack (TIA), and cerebral infarction without residual deficits; Z79.899 Other long term (current) drug therapy; Z88.8 Allergy status to other drugs, medicaments and biological substances
CPT/HCPCS: 99282; A9270

== ENCOUNTER 2023-09-24 02:35 | Inpatient (IN) | payer MEDICAID ==
[2023-09-24] MEDS ORDERED: Sodium Chloride 0.9% 10 ML Syringe FLUSH PRN ×2 (03:02→03:07)
[2023-09-24 03:11] LABS: BASOPHILS PERCENT AUTO 0.4 % (0.0-1.0); EOSINOPHILS ABSOLUTE AUTO 0.1 K/mm3 (0.0-0.4); EOSINOPHILS PERCENT AUTO 0.8 % (0.0-6.0); HEMATOCRIT 36.7 % (37.0-47.0); HEMOGLOBIN 11.7 gm/dl (12.0-16.0); IMMATURE GRAN ABSOLUTE AUTO 0.01 K/mm3 (0.00-0.05); IMMATURE GRAN PERCENT AUTO 0.1 % (0.0-0.4); LYMPHOCYTES PERCENT AUTO 25.9 % (24.0-44.0); MEAN CORPUSCULAR HEMOGLOBIN 25.9 pg (28.0-32.0); MEAN CORPUSCULAR HGB CONC 31.9 g/dl (32.0-36.0); MEAN CORPUSCULAR VOLUME 81.2 fl (83.0-99.0); MEAN PLATELET VOLUME 10.9 fl (9.4-12.3); MONOCYTES ABSOLUTE AUTO 0.6 K/mm3 (0.0-0.8); MONOCYTES PERCENT AUTO 7.6 % (0.0-8.0); NEUTROPHILS ABSOLUTE AUTO 4.9 K/mm3 (1.8-7.7); NEUTROPHILS PERCENT AUTO 65.2 % (41.0-71.0); PLATELET COUNT,PLT 203 K/mm3 (150-400); RED BLOOD CELL COUNT 4.52 M/mm3 (4.10-5.30); WHITE BLOOD CELL COUNT,WBC 7.53 K/mm3 (3.9-11.3)
[2023-09-24 03:29] LABS: INR 0.97; PROTHROMBIN TIME 10.3 SECONDS (9.7-12.0)
[2023-09-24 03:30] LABS: PTT,PARTIAL THROMBOPLSTIN TIME 33.6 SECONDS (21.7-31.4)
[2023-09-24 03:34] LABS: A/G RATIO 0.8 (1-2); ALBUMIN 3.3 g/dl (3.4-5.0); ANION GAP 13.3 (5-15); BILIRUBIN TOTAL 0.3 mg/dL (0.2-1.0); BUN/CREATININE RATIO 18.6 (14-18); CALCIUM 8.8 mg/dL (8.5-10.1); CREATININE 0.7 mg/dL (0.55-1.02); EST CRCL DRUG DOSING (CG) 74.17 mL/min; MAGNESIUM 2.1 mg/dL (1.8-2.4); POTASSIUM,K 3.3 mEq/L (3.5-5.1); PROTEIN TOTAL,TP 7.4 g/dl (6.4-8.2)
[2023-09-24] MEDS: Sodium Chloride 0.9% 1,000 ML IV ONE (03:56)
[2023-09-24] MEDS: Sodium Chloride 0.9% 10 ML Syringe FLUSH ONE (03:59)
[2023-09-24] MEDS: Iopamidol 755 Mg/ML 100 ML Bottle IVPUSH ONE (03:59)
[2023-09-24] MEDS: Sodium Chloride 0.9% 100 ML IV SCH (03:59)
[2023-09-24 04:11] LABS: APPEARANCE,URINE CLEAR (Clear); BILIRUBIN,URINE NEGATIVE (Negative); COLOR,URINE YELLOW (Yellow); GLUCOSE,URINE NEGATIVE (Negative); KETONES,URINE NEGATIVE (Negative); LEUKOCYTE ESTERASE,URINE TRACE (Negative); NITRITE,URINE NEGATIVE (Negative); OCCULT BLOOD,URINE 2+ (Negative); PH,URINE 6.5 (5.0-8.0); PROTEIN,URINE TRACE (Negative); UROBILINOGEN,URINE 0.2 (0.2-1.0)
[2023-09-24 04:23] LABS: BACTERIA,URINE RARE /hpf (FEW); MUCUS,URINE FEW /hpf (FEW); RBC,URINE 0-5 /hpf (0-5); SQUAMOUS EPITHELIAL CELLS,UR 0-5 /hpf (0-5); WBC CLUMPS,URINE NOT SEEN /hpf (NOT SEEN)
[2023-09-24] MEDS: Aspirin 81 MG Tab.Chew PO ONE (05:56)
[2023-09-24] MEDS ORDERED: Acetaminophen 325 MG Tab PO PRN ×2 (12:00→14:20)
[2023-09-24] MEDS ORDERED: Melatonin 3 MG Tab PO PRN (12:00)
[2023-09-24] MEDS ORDERED: Ondansetron 4 MG Tab.DIS PO PRN (12:00)
[2023-09-24] MEDS ORDERED: Polyethylene Glycol 3350 Powder 17 GM Packet PO PRN (12:00)
[2023-09-24] MEDS: Enoxaparin 40 MG/0.4 ML Syringe SUBCUT SCH (12:39)
[2023-09-24] MEDS: Potassium Chloride 20 MEQ Tab.ER PO ONE (21:19)
[2023-09-25 06:02] LABS: BASOPHILS PERCENT AUTO 0.8 % (0.0-1.0); EOSINOPHILS ABSOLUTE AUTO 0.1 K/mm3 (0.0-0.4); EOSINOPHILS PERCENT AUTO 1.9 % (0.0-6.0); HEMATOCRIT 38.3 % (37.0-47.0); HEMOGLOBIN 12.3 gm/dl (12.0-16.0); IMMATURE GRAN ABSOLUTE AUTO 0.01 K/mm3 (0.00-0.05); IMMATURE GRAN PERCENT AUTO 0.2 % (0.0-0.4); LYMPHOCYTES ABSOLUTE AUTO 2.3 K/mm3 (1.0-4.8); LYMPHOCYTES PERCENT AUTO 47.8 % (24.0-44.0); MEAN CORPUSCULAR HEMOGLOBIN 25.6 pg (28.0-32.0); MEAN CORPUSCULAR HGB CONC 32.1 g/dl (32.0-36.0); MEAN CORPUSCULAR VOLUME 79.6 fl (83.0-99.0); MEAN PLATELET VOLUME 10.4 fl (9.4-12.3); MONOCYTES ABSOLUTE AUTO 0.6 K/mm3 (0.0-0.8); MONOCYTES PERCENT AUTO 11.6 % (0.0-8.0); NEUTROPHILS ABSOLUTE AUTO 1.8 K/mm3 (1.8-7.7); NEUTROPHILS PERCENT AUTO 37.7 % (41.0-71.0); PLATELET COUNT,PLT 239 K/mm3 (150-400); RED BLOOD CELL COUNT 4.81 M/mm3 (4.10-5.30); WHITE BLOOD CELL COUNT,WBC 4.73 K/mm3 (3.9-11.3)
[2023-09-25 06:52] LABS: A/G RATIO 0.8 (1-2); ALBUMIN 3.4 g/dl (3.4-5.0); ANION GAP 12.5 (5-15); BILIRUBIN TOTAL 0.2 mg/dL (0.2-1.0); CALCIUM 9.2 mg/dL (8.5-10.1); CREATININE 0.7 mg/dL (0.55-1.02); EST CRCL DRUG DOSING (CG) 74.17 mL/min; MAGNESIUM 1.9 mg/dL (1.8-2.4); POTASSIUM,K 3.5 mEq/L (3.5-5.1); PROTEIN TOTAL,TP 7.9 g/dl (6.4-8.2); TSH 1.832 uIU/mL (0.358-3.74)
[2023-09-25] MEDS: Aspirin 81 MG Tab.Chew PO SCH (09:05)
[2023-09-25 09:28] VITALS: BP 164/113; PULSE 64
[2023-09-25 18:53] LABS: HEMOGLOBIN A1C 5.7 %
== END 2023-09-25 11:44 | disposition home or self-care (01) | DRG 103 ==
LOC: JD.ED 02:35 → JD.MS 06:25
PROVIDERS: ADMIT Family Medicine; ATTEND Family Medicine
DX: G43.809 Other migraine, not intractable, without status migrainosus (principal); G45.9 Transient cerebral ischemic attack, unspecified; I69.351 Hemiplegia and hemiparesis following cerebral infarction affecting right dominant side; R20.2 Paresthesia of skin; M06.9 Rheumatoid arthritis, unspecified; I10 Essential (primary) hypertension; F41.9 Anxiety disorder, unspecified; F32.A Depression, unspecified; E66.9 Obesity, unspecified; M32.9 Systemic lupus erythematosus, unspecified; M79.602 Pain in left arm; M79.605 Pain in left leg; F17.210 Nicotine dependence, cigarettes, uncomplicated; Z88.8 Allergy status to other drugs, medicaments and biological substances; Z79.899 Other long term (current) drug therapy; Z68.39 Body mass index [BMI] 39.0-39.9, adult; Z98.891 History of uterine scar from previous surgery; Z88.0 Allergy status to penicillin; Z98.890 Other specified postprocedural states
CPT/HCPCS: 36415; 70450; 70496; 70498; 80053; 81001; 82947; 83735; 84484; 85025; 85610; 85730; 87086; 93005; 99285; A9270; J3490 ×2; J7030; Q9967; 70551; 70551-26; 80061; 82607; 83036; 84443; 87088; 87186; 93010; 93306; 94761; 97161-GP; 99284; J1650

== ENCOUNTER 2024-02-15 12:34 | Emergency (ER) | payer MEDICAID ==
[2024-02-15 13:17] LABS: BASOPHILS PERCENT AUTO 0.5 % (0.0-1.0); EOSINOPHILS ABSOLUTE AUTO 0.1 K/mm3 (0.0-0.4); HEMOGLOBIN 12.9 gm/dl (12.0-16.0); IMMATURE GRAN ABSOLUTE AUTO 0.02 K/mm3 (0.00-0.05); IMMATURE GRAN PERCENT AUTO 0.3 % (0.0-0.4); LYMPHOCYTES ABSOLUTE AUTO 2.4 K/mm3 (1.0-4.8); LYMPHOCYTES PERCENT AUTO 38.3 % (24.0-44.0); MEAN CORPUSCULAR HEMOGLOBIN 25.5 pg (28.0-32.0); MEAN CORPUSCULAR HGB CONC 32.3 g/dl (32.0-36.0); MEAN CORPUSCULAR VOLUME 79.1 fl (83.0-99.0); MEAN PLATELET VOLUME 10.3 fl (9.4-12.3); MONOCYTES ABSOLUTE AUTO 0.4 K/mm3 (0.0-0.8); MONOCYTES PERCENT AUTO 5.8 % (0.0-8.0); NEUTROPHILS ABSOLUTE AUTO 3.4 K/mm3 (1.8-7.7); NEUTROPHILS PERCENT AUTO 54.1 % (41.0-71.0); PLATELET COUNT,PLT 239 K/mm3 (150-400); RED BLOOD CELL COUNT 5.06 M/mm3 (4.10-5.30); WHITE BLOOD CELL COUNT,WBC 6.21 K/mm3 (3.9-11.3)
[2024-02-15 13:39] LABS: A/G RATIO 0.7 (1-2); ALBUMIN 3.4 g/dl (3.4-5.0); ANION GAP 11.6 (5-15); BILIRUBIN TOTAL 0.2 mg/dL (0.2-1.0); BUN/CREATININE RATIO 18.6 (14-18); CALCIUM 8.8 mg/dL (8.5-10.1); CREATININE 0.7 mg/dL (0.55-1.02); EST CRCL DRUG DOSING (CG) 109.85 mL/min; POTASSIUM,K 3.6 mEq/L (3.5-5.1); PROTEIN TOTAL,TP 8.2 g/dl (6.4-8.2)
[2024-02-15] MEDS: Sodium Chloride 0.9% 100 ML IV SCH (14:20)
[2024-02-15] MEDS: Sodium Chloride 0.9% 10 ML Syringe FLUSH PRN (14:20)
[2024-02-15] MEDS: Iopamidol 755 Mg/ML 100 ML Bottle IVPUSH ONE (14:21)
[2024-02-15] MEDS: Morphine 4 MG/ML Syringe IVPUSH ONE (14:36)
[2024-02-15] MEDS: Sodium Chloride 0.9% 1,000 ML IV ONE (14:36)
[2024-02-15] MEDS: Aspirin 81 MG Tab.Chew PO ONE (16:11)
[2024-02-15 18:34] VITALS: BP 145/106; PULSE 63
== END 2024-02-15 17:24 ==
LOC: JD.ED 12:34
DX: R07.9 Chest pain, unspecified (principal); R00.1 Bradycardia, unspecified; I10 Essential (primary) hypertension; E66.9 Obesity, unspecified; F17.210 Nicotine dependence, cigarettes, uncomplicated; Z86.73 Personal history of transient ischemic attack (TIA), and cerebral infarction without residual deficits; Z88.0 Allergy status to penicillin; Z88.8 Allergy status to other drugs, medicaments and biological substances; Z79.82 Long term (current) use of aspirin; Z68.29 Body mass index [BMI] 29.0-29.9, adult
CPT/HCPCS: 36415; 71275; 80053; 83690; 84484; 85025; 87428; 93005; 96361; 96374; 99285; A9270; J2270; J3490; J7030; Q9967

== ENCOUNTER 2024-03-01 10:13 | Emergency (ER) | payer MEDICAID ==
[2024-03-01] MEDS ORDERED: Sodium Chloride 0.9% 10 ML Syringe FLUSH PRN (11:01)
[2024-03-01] MEDS ORDERED: Ondansetron 4 MG/2 ML SDV IVPUSH ONE (11:01)
[2024-03-01] MEDS ORDERED: HYDROmorphone 0.5 MG/0.5 ML Syringe IVPUSH ONE (11:02)
[2024-03-01] MEDS ORDERED: Sodium Chloride 0.9% 1,000 ML IV SCH (11:15)
[2024-03-01 12:14] VITALS: BP 137/87; PULSE 78
== END 2024-03-01 12:12 | disposition home or self-care (01) ==
LOC: JD.ED 10:13
DX: R07.9 Chest pain, unspecified (principal); I25.2 Old myocardial infarction; I10 Essential (primary) hypertension; M19.90 Unspecified osteoarthritis, unspecified site; E66.9 Obesity, unspecified; Z87.891 Personal history of nicotine dependence; Z86.73 Personal history of transient ischemic attack (TIA), and cerebral infarction without residual deficits; Z88.0 Allergy status to penicillin; Z88.8 Allergy status to other drugs, medicaments and biological substances; Z88.6 Allergy status to analgesic agent; Z79.82 Long term (current) use of aspirin; Z79.899 Other long term (current) drug therapy; Z68.38 Body mass index [BMI] 38.0-38.9, adult
CPT/HCPCS: 71046; 71046-26; 93005; 99285